=== PATIENT | male | born 1965 | race Caucasian/White ===

== ENCOUNTER → 2019-01-16 14:12 | Outpatient (CLI) | payer OTHER, SELFPAY ==
[2019-01-16 16:01] LABS: Absolute Neutrophil Count 2.5 X10^3/uL (2.0-7.7); Basophil# 0.03 X10^3/uL; Basophil% 0.6 % (0-1); Eosinophil# 0.06 X10^3/uL; Eosinophils% 1.2 % (0-5); Hematocrit 45.2 % (40-54); Hemoglobin 14.9 g/dL (13.0-16.5); Lymphocyte % 40.6 % (19-41); Mean Corpuscular Hgb 28.5 pg (27.0-32.0); Mean Corpuscular Volume 86.4 fL (80-94); Mean Platelet Vol. 9.9 fl (6.2-12.0); Monocyte# 0.44 X10^3/uL; Monocyte% 8.5 % (0-10); NRBC Flagged by Analyzer 0 % (0-5); Neutrophil # 2.53 X10^3/uL (2.7-7.7); Neutrophil % 48.9 % (47-70); Platelet Count 239 K/mm3 (150-450); RBC Distribution Width CV 13.4 % (11.6-14.6); RBC Distribution Width SD 42.3 fl (35.1-43.9); Red Blood Count 5.23 M/mm3 (4.6-6.2); White Blood Count 5.2 K/mm3 (4.4-11.0)
[2019-01-16 16:20] LABS: ALB/GLOB Ratio 0.8 RATIO (0.9-2.4); AST(SGOT) 56 U/L (15-37); Alanine Aminotransfer ALT/SGPT 117 U/L (16-61); Albumin, Serum 3.7 g/dL (3.2-5.0); Alkaline Phosphatase 95 U/L (45-117); Anion Gap 8 (5-15); BUN 19 mg/dL (7-18); BUN/Creat Ratio 17.9 RATIO (10-20); Calcium,Total 9.2 mg/dL (8.5-10.1); Chloride 104 mmol/L (98-107); Creatinine, Serum 1.06 mg/dL (0.70-1.30); EST Glomerular Filtration Rate 78 mL/min (>60); Est Glom Filt Rate - Afr Amer 94 mL/min (>60); Globulin 4.7 g/dL (2.2-4.2); Glucose 89 mg/dL (74-106); Potassium 4.1 mmol/L (3.5-5.1); Protein, Total 8.4 g/dL (6.4-8.2); Sodium Level 138 mmol/L (136-145); Thyroid Stim Hormone (TSH) 1.93 uIU/mL (0.358-3.74)
== END ==
PROVIDERS: Family Provider Internal Medicine; PCP Internal Medicine; Visit Provider Family Medicine Geriatric Medicine
DX: R53.83 Other fatigue (principal)
CPT/HCPCS: 36415; 80053; 84443; 85025

== ENCOUNTER → 2019-02-12 15:53 | Outpatient (CLI) | payer OTHER, SELFPAY ==
--- NOTE | 2019-02-12 13:00 | COLBX_PTH ---
PATIENT: AYE JONAS LOC: [facility] U#:[id number] AGE/SX: 59/M ROOM: RE02/12/[address]: Dr. Gautam Zayas MD : 1965 BED: DIS: SPEC #: [id number] RECD: 02/12/19 15:29 STATUS: LAVERN KENDRICK #: [id number] ESME: 02/12/19 13:[address]: Gautam Zayas DEPT: SURGICAL PATHOLOGY RECD BY: Demetrius Kerns ENTERED: 02/13/19 09:57 SP TYPE: COLON BX OTHR DR: Dr. Vaishali Monahan MD [facility] Tissues: SPLENIC FLEXURE Procedures: Surgery Specimen Level IV HEADER OPERATION: Colonoscopy with biopsies PRE-OP DIAGNOSIS: Screening colon / polyp TISSUE SUBMITTED: Polyp splenic flexure MICROSCOPIC DIAGNOSIS Splenic flexure polyp, biopsy: Hyperplastic polyp. SJ:pb 02/14/19 MICROSCOPIC DESCRIPTION Slides are reviewed. GROSS DESCRIPTION Received in fixative is one container labeled with the patient's name and designated splenic flexure. The specimen consists of two irregular fragments of light gage soft tissue that in aggregate measure 0.4 x 0.3 x 0.1 cm. The specimen is totally submitted in one cassette. / SJ:pb 02/13/19 TC:1 CPT: 23936
== END ==
PROVIDERS: Family Provider Internal Medicine; PCP Internal Medicine; Referring Provider Internal Medicine Gastroenterology; Visit Provider Internal Medicine Gastroenterology
DX: K63.5 Polyp of colon (principal)
CPT/HCPCS: 88305

== ENCOUNTER → 2019-02-28 14:04 | Outpatient (CLI) | payer OTHER, SELFPAY ==
[2019-02-28 17:40] LABS: ALB/GLOB Ratio 0.8 RATIO (0.9-2.4); AST(SGOT) 60 U/L (15-37); Alanine Aminotransfer ALT/SGPT 120 U/L (16-61); Albumin, Serum 3.7 g/dL (3.2-5.0); Alkaline Phosphatase 87 U/L (45-117); Anion Gap 6 (5-15); BUN 17 mg/dL (7-18); BUN/Creat Ratio 15.7 RATIO (10-20); Calcium,Total 9.1 mg/dL (8.5-10.1); Chloride 102 mmol/L (98-107); Creatinine, Serum 1.08 mg/dL (0.70-1.30); EST Glomerular Filtration Rate 76 mL/min (>60); Est Glom Filt Rate - Afr Amer 92 mL/min (>60); Globulin 4.6 g/dL (2.2-4.2); Glucose 99 mg/dL (74-106); Potassium 4.3 mmol/L (3.5-5.1); Protein, Total 8.3 g/dL (6.4-8.2); Sodium Level 136 mmol/L (136-145)
== END ==
PROVIDERS: Visit Provider Family Medicine Geriatric Medicine
DX: I10 Essential (primary) hypertension (principal)
CPT/HCPCS: 36415; 80053

== ENCOUNTER 2022-10-01 10:01 | Emergency (ER) | payer OTHER, SELFPAY ==
[2022-10-01 10:02] VITALS: BP 145/79; PULSE 97; RESP 18; TEMP 37.4; O2SAT 99; BMI 43.0
--- NOTE | 2022-10-01 10:05 | EDS_ITS ---
HPI History of Present Illness Chief Complaint: Fever [facility] Medical History (Updated 10/01/22 @ 10:16 by Aleyda Esparza) Hypertension Home Medications lisinopril 5 mg tablet 5 mg PO DAILY 10/01/22 [History Last Taken Unknown] nitrofurantoin macrocrystal 100 mg capsule 100 mg PO BID 7 days #14 caps 10/01/22 [Rx Last Taken Unknown] Allergy/AdvReac Type Severity Reaction Status Date / Time No Known Allergies Allergy Verified 10/01/22 10:03 Social History Smoking Status: Current every day smoker tobacco type: smokeless tobacco EXAM Physical Exam Const Vital Signs: 10/01/22 10:02 10/01/22 10:39 10/01/22 10:20 Temperature 99.3 F H 102.2 F H Temperature Source Oral Oral Pulse Rate 97 79 Respiratory Rate 18 14 Blood Pressure 145/79 H 128/85 H Blood Pressure Mean 101 99 Pulse Ox 99 94 Oxygen Delivery Method Room Air Room Air 10/01/22 12:29 10/01/22 13:15 10/01/22 14:00 Temperature Temperature Source Pulse Rate 84 Respiratory Rate Blood Pressure 101/60 111/61 104/64 Blood Pressure Mean 73 75 74 Pulse Ox 95 Oxygen Delivery Method Room Air MDM MDM MDM Narrative Medical decision making narrative: HISTORY OF PRESENT ILLNESS: 57-year-old male here with fever. Patient states he had prostate biopsy yesterday. States biopsy was done yesterday. Per the patient's there were 12 biopsies taken. He states since then he has had hematuria and feeling feverish with chills. Denies any nausea vomiting, headache, chest pain, shortness of breath, cough, abdominal pain. Denies any testicular tenderness. Notes pain at biopsy site otherwise no other symptoms. REVIEW OF SYSTEMS: Pertinent positives:fever, chills, hematuria Pertinent negatives: Cough, headache, abdominal pain, nausea vomiting PHYSICAL EXAM: Nursing triage notes reviewed, Vital signs reviewed Constitutional: please see mdm HENT: MMM Eyes: Pupils equal round and reactive to light, Extraocular muscles intact Neck: No stridor, no JVD, full neck ROM Lungs: Clear to auscultation, No wheezing or rales. No increased work of breathing, no conversational dyspnea, no accessory muscle use, no nasal flaring. No respiratory distress noted Heart: Regular rate and rhythm, No murmurs, No rubs and No gallops, 2+ distal pulses (radial, femoral, posterior tibial) in all extremities Abdomen: Soft, there is no tenderness, rigidity, rebound or guarding, no obvious peritoneal signs, no palpable pulsatile abdominal masses, no auscultated abdominal bruit : No CVAT, bladder urethral meatus, no testicular tenderness, Extremities: No edema Neuro: No focal neurological deficits, cranial nerves II through XII intact, 5/5 strength in all extremities. Intact sensation to light touch in all extremities, 2+ reflexes bilateral patella tendons. Normal gait. No ataxia. Skin: No rash or lesions noted MEDICAL DECISION MAKING: Chief Complaint: fever External records reviewed: Prostate biopsy done via transrectal approach on 09/30/2022 at [address] Edwards Factors affecting care: History of elevated PSA, obesity, hypertension Social determinants of health: Former smoker History obtained from others: the patient's Consults: none ALL IMAGES HAVE BEEN PERSONALLY REVIEWED AND INTERPRETED BY MYSELF. MDM Narrative: I considered the following differential diagnosis: UTI, reactive fever status post biopsy, bacterial illness, viral illness I obtained a broad lab and imaging work-up to further elucidate the etiology of the patient's complaints. Specifically concerned about bacteremia versus viral infection versus UTI versus prostatitis. I obtained a lactate to rule out signs of systemic inflammation. Urine urine culture and a CT scan to further evaluate patient's symptoms. CT scan shows evidence of bladder wall thickening. No obvious intra-abdominal abscesses. Labs consistent with elevated lactate concerning for endorgan hypoperfusion. There is no leukocytosis suggestive of inflammation. No anion gap to suggest endorgan hypoperfusion. UA consistent with infection likely secondary to recent prostate biopsy. Given Zosyn blood cultures and urine cultures were sent prior to antibiotics. On reevaluation the patient's lactate resolved. He felt normal shared decision make discussion was undertaken. I offered the patient admission given recent procedure, fever and initial elevated lactate. Patient refused admission at this time stating like to go home and oral antibiotics and monitor symptoms from home. I prescribed nitrofurantoin. I encouraged patient to follow-up with his online medical record and/or primary care physician for culture results. We will also call the patient if his culture results are positive and nitrofurantoin does not adequately cover the bacteria that grows. He agreed to return if symptoms change or worsen. Agreed to follow with his urologist and primary care physician the next available appointment. Total critical care time today provided was at least 0 minutes. This excludes separately billable procedures. There was a high probability of clinically significant/life threatening deterioration in the patient's condition which required my urgent intervention. Shared decision making: I will have a discussion with the patient and or visitors regarding risk/benefits of further testing or admission. They will be made aware of of the risk/benefits inherent in this decision they will be given the opportunity to voice understanding. Lab Data Attestation: I reviewed the patient's lab results. Lab results narrative: Urinalysis shows evidence of UTI CBC without leukocytosis, severe anemia, no thrombocytopenia. BMP with baseline CKD, negative anion gap LFTs show no evidence of hepatobiliary pathology. Labs: Laboratory Results - last 24 hr 10/01/22 10/01/22 10/01/22 10:28 10:28 10:28 WBC 6.3 RBC 5.22 Hgb 15.1 Hct 45.3 MCV 86.8 MCH 28.9 MCHC 33.3 RDW Std Deviation 44.0 H RDW Coeff of Deon 13.8 Plt Count 225 MPV 9.3 Immature Gran % (Auto) 0.500 Neut % (Auto) 90.4 H Lymph % (Auto) 8.3 L [place] % (Auto) 0.2 Eos % (Auto) 0.3 Baso % (Auto) 0.3 Absolute Neuts (auto) 5.7 Absolute Lymphs (auto) 0.52 L Nucleated RBC % 0 Differential Comment SCANNED Sodium 135 L Potassium 4.4 Chloride 102 Carbon Dioxide 28.0 Anion Gap 5 BUN 18 Creatinine 1.46 H Estim Creat Clear Calc 52.19 Est GFR (MDRD) Af Amer 64 Est GFR (MDRD) Non-Af 53 L BUN/Creatinine Ratio 12.3 Glucose 98 Lactic Acid 2.5 H* Calcium 9.6 Total Bilirubin 0.80 AST 18 ALT 34 Alkaline Phosphatase 74 Total Protein 8.2 Albumin 3.8 Globulin 4.4 H Albumin/Globulin Ratio 0.9 Lipase 67 Urine Color Urine Clarity Urine pH Ur Specific [place] Urine Protein Urine Glucose (UA) Urine Ketones Urine Occult Blood Urine Nitrite Urine Bilirubin Urine Urobilinogen Ur Leukocyte Esterase Urine RBC Urine WBC Ur Squamous Epith Cells Urine Bacteria Urine Mucus 10/01/22 10/01/22 10:28 14:05 WBC RBC Hgb Hct MCV MCH MCHC RDW Std Deviation RDW Coeff of Deon Plt Count MPV Immature Gran % (Auto) Neut % (Auto) Lymph % (Auto) [place] % (Auto) Eos % (Auto) Baso % (Auto) Absolute Neuts (auto) Absolute Lymphs (auto) Nucleated RBC % Differential Comment Sodium Potassium Chloride Carbon Dioxide Anion Gap BUN Creatinine Estim Creat Clear Calc Est GFR (MDRD) Af Amer Est GFR (MDRD) Non-Af BUN/Creatinine Ratio Glucose Lactic Acid 1.7 Calcium Total Bilirubin AST ALT Alkaline Phosphatase Total Protein Albumin Globulin Albumin/Globulin Ratio Lipase Urine Color Red Urine Clarity Cloudy Urine pH 5.0 Ur Specific [place] 1.015 Urine Protein 100 H Urine Glucose (UA) Normal Urine Ketones 5 H Urine Occult Blood 250 H Urine Nitrite Positive H Urine Bilirubin Negative Urine Urobilinogen Normal Ur Leukocyte Esterase 100 H Urine RBC 25-50 SEEN Urine WBC 10-25 SEEN Ur Squamous Epith Cells 0 SEEN Urine Bacteria 1+ Urine Mucus 0 SEEN Radiography Diagnostic Testing: Clinical Impression(s) from Imaging Studies Abdomen/Pelvis CT 10/01/22 10:17 IMPRESSION: Hepatic cysts. Small bilateral renal cysts. 4.2 cm x 4.3 cm heterogeneous mass in the inferior pole of the left kidney. A neoplastic process should BE ruled out. The degree of enlargement of the prostate with heterogeneous appearance in indentation of the bladder base. Diffuse bladder wall thickening. Electronically Signed: Mata Souza MD at 12:01 EDT Reading Location ID and State: [address] [place] [address] , Service support , Discharge Plan Triage Chief Complaint: Fever ED Provider: Daryl Pickett Dx/Rx/DC Orders Instructions: ED Bladder Infection, Male (Adult) Prescriptions: New nitrofurantoin macrocrystal 100 mg capsule 100 mg PO BID 7 Days Qty: 14 0RF Rx Instructions: must administer with a meal/food No Action lisinopril 5 mg tablet 5 mg PO DAILY Label Comments: take 1 tablet by mouth once daily Stand Alone Forms: ED Work / School Excuse Primary Care Provider: Billy Thurston Referrals: NOT,DEFINED [Non-Staff] - Activity Restrictions/Additional Instructions: Thank you for trusting us with your care today! Please take Tylenol (2 pills, 650 mg), ibuprofen (2 pills, 400 mg) every 6 hours as needed for pain and fever control. Please take oral antibiotics. Please return to the emergency department if your symptoms change or worsen. Specifically if you develop worsening fever, nausea vomiting, if you develop worsening fevers or chills. Please follow with your primary care physician for further outpatient evaluation and management. Disposition Disposition: Home, Self Care
--- NOTE | 2022-10-01 10:17 | CT_ITS ---
STUDY: CT ABDOMEN AND PELVIS WITH CONTRAST REASON FOR EXAM: Male, 57 years old. Fever status post transrectal prostate biopsy RADIATION DOSAGE (If Supplied By Facility): CTDIvol = ( 17.015 ) mGy, DLP = ( 1488.18 ) mGycm TECHNIQUE: Transaxial images were obtained from the dome of the diaphragm to the symphysis pubis without oral contrast. IV-100 ML ISOVUE 370 was administered. Sagittal and coronal images were reconstructed. Individualized dose optimization techniques were used for this CT. COMPARISON: None. FINDINGS: Small calcified granuloma in the anterior aspect of the lingular segment of left upper lobe. The visualized portions of the heart are within normal limits. Scattered hepatic cysts. The largest cyst measures 5.2 cm x 5 cm. Fatty infiltration of the liver. Normal gallbladder and extrahepatic biliary system. Normal spleen. Normal pancreas. Normal bilateral adrenal glands. There is a 1.4 cm x 1.9 cm cyst in the upper outer aspect of the right kidney. There is a 4.2 cm x 4.3 cm heterogeneous mass in the inferior pole of the left kidney. A neoplastic process should be ruled out. There is also evidence of a 1.8 cm cyst in the lower pole of the left kidney. Normal left kidney. Normal visualized stomach. Normal small intestine. Normal colon. The appendix is visualized and appears normal. Normal abdominal aorta. Normal inferior vena cava. There is borderline retroperitoneal lymphadenopathy with enlarged nodes no greater than 10mm in the short axis diameter. Diffuse bladder wall thickening. Markedly enlarged heterogeneous appearance of the prostate measuring 5.4 cm x 7.5 cm. This causes indentation at the bladder base. There is evidence of presacral soft tissue prominence. Small benign-appearing bilateral inguinal lymph nodes. There are diffuse degenerative changes of the visualized lumbar spine. CT/Abdomen/Pelvis W IV Cont ONLY IMPRESSION: Hepatic cysts. Small bilateral renal cysts. 4.2 cm x 4.3 cm heterogeneous mass in the inferior pole of the left kidney. A neoplastic process should BE ruled out. The degree of enlargement of the prostate with heterogeneous appearance in indentation of the bladder base. Diffuse bladder wall thickening. Electronically Signed: Mata Souza MD at 12:01 EDT ,
[2022-10-01 10:20] VITALS: TEMP 39
[2022-10-01] MEDS: Acetaminophen 325 MG Tablet PO (10:27)
[2022-10-01] MEDS: 0.9% Normal Saline 1,000 ML 1000 ML IV (10:27)
[2022-10-01] MEDS: Ketorolac 15 MG/ML Vial IV (10:27)
[2022-10-01 10:39] VITALS: BP 128/85; PULSE 79; RESP 14; O2SAT 94
[2022-10-01 10:39] LABS: Mucous, Urine 0 SEEN /hpf (<or=2+); Squamous Epithelial Cells - UA 0 SEEN /hpf (0-5)
[2022-10-01 10:40] LABS: Color, Urine Red (Yellow); Glucose, Dipstick Normal (Normal); Ketone-Dipstick 5 mg/dl (Negative); Leukocyte Esterase-Dipstick 100 /ul (Negative); Nitrite-Dipstick Positive (Negative); Occult Blood-Urine 250 /ul (Negative); Protein-Dipstick 100 mg/dl (Negative); Specific Gravity, Urine 1.015 (1.002-1.030); Urine Bilirubin Dipstick Negative (Negative); Urine Clarity Cloudy (Clear); Urine Urobilinogen Normal (Normal)
[2022-10-01 10:41] LABS: Absolute Lymphocyte Count 0.52 X10^3/uL (0.83-4.51); Absolute Neutrophil Count 5.7 X10^3/uL (2.0-7.7); Basophil# 0.02 X10^3/uL; Basophil% 0.3 % (0-1); Eosinophil# 0.02 X10^3/uL; Eosinophils% 0.3 % (0-5); Hematocrit 45.3 % (40-54); Hemoglobin 15.1 g/dL (13.0-16.5); Lymphocyte # 0.52 X10^3/ul (0.83-4.51); Lymphocyte % 8.3 % (19-41); Mean Corp Hgb Conc 33.3 g/dL (32-36); Mean Corpuscular Hgb 28.9 pg (27.0-32.0); Mean Corpuscular Volume 86.8 fL (80-94); Mean Platelet Vol. 9.3 fl (6.2-12.0); Monocyte# 0.01 X10^3/uL; Monocyte% 0.2 % (0-10); NRBC Flagged by Analyzer 0 % (0-5); Neutrophil # 5.65 X10^3/uL (2.7-7.7); Neutrophil % 90.4 % (47-70); POSITIVE DIFFERENTIAL YES; Platelet Count 225 K/mm3 (150-450); RBC Distribution Width CV 13.8 % (11.6-14.6); Red Blood Count 5.22 M/mm3 (4.6-6.2); White Blood Count 6.3 K/mm3 (4.4-11.0)
[2022-10-01 10:44] LABS: Differential Indicated SCAN CRITERIA MET
[2022-10-01 10:49] LABS: Bacteria 1+ /hpf (None Seen); Red Blood Cells-Urine 25-50 SEEN /hpf (0-5); White Blood Cells 10-25 SEEN /hpf (0-5)
[2022-10-01 10:58] LABS: ALB/GLOB Ratio 0.9 RATIO (0.9-2.4); AST(SGOT) 18 U/L (15-37); Alanine Aminotransfer ALT/SGPT 34 U/L (16-61); Albumin, Serum 3.8 g/dL (3.2-5.0); Alkaline Phosphatase 74 U/L (45-117); Anion Gap 5 (5-15); BUN 18 mg/dL (7-18); BUN/Creat Ratio 12.3 RATIO (10-20); Calcium,Total 9.6 mg/dL (8.5-10.1); Chloride 102 mmol/L (98-107); Creatinine, Serum 1.46 mg/dL (0.70-1.30); EST Glomerular Filtration Rate 53 mL/min (>60); Est Glom Filt Rate - Afr Amer 64 mL/min (>60); Estimated Creatinine Clearance 52.19 ml/min; Globulin 4.4 g/dL (2.2-4.2); Glucose 98 mg/dL (74-106); Lipase 67 U/L (13-75); Potassium 4.4 mmol/L (3.5-5.1); Protein, Total 8.2 g/dL (6.4-8.2); Sodium Level 135 mmol/L (136-145)
[2022-10-01 11:13] LABS: Lactic Acid 2.5 mmol/L (0.4-1.9)
[2022-10-01 11:14] LABS: Differential Comment SCANNED
--- NOTE | 2022-10-01 11:16 | ED.RN ---
PT LACTIC 23.5. DR ONTIVEROS
[2022-10-01] MEDS: 0.9% Normal Saline 1,000 ML 999 ML IV ×2 (11:54→13:13)
[2022-10-01 12:29] VITALS: BP 101/60; PULSE 84; O2SAT 95
[2022-10-01 13:15] VITALS: BP 111/61
[2022-10-01 14:00] VITALS: BP 104/64
[2022-10-01 14:37] LABS: Reflex Lactate? Y
[2022-10-01 14:41] LABS: Lactic Acid 1.7 mmol/L (0.4-1.9)
--- NOTE | 2022-10-02 01:24 | ED.RN ---
LAB CALLED WITH POSITIVE BLOOD CULTURE RESULTS. GRAM NEGATIVE IN RODS IN BOTH BOTTLES. DR. MUNIZ REVIEWED CHART AND PATIENT SHOULD BE CALLED IN THE MORNING TO CHECK TO SEE HOW HE IS DOING. PRIOR TO MAKING PHONE CALL PATIENT PRESENTS BACK TO THE ER FEELING WORSE. FULL WORK TO BE COMPLETED AT THIS TIME.
== END 2022-10-01 15:41 | disposition home or self-care (01) ==
PROVIDERS: Emergency Provider Emergency Medicine; PCP Family Medicine; Visit Provider Emergency Medicine
DX: R50.9 Fever, unspecified (principal); I10 Essential (primary) hypertension; Z79.899 Other long term (current) drug therapy; F17.200 Nicotine dependence, unspecified, uncomplicated; N30.90 Cystitis, unspecified without hematuria
CPT/HCPCS: 74177; 80053; 81001; 83605; 83690; 85025; 87040; 87077; 87086; 87088; 87186; 87428; 96361; 96365; 96366; 96375; 99282; J7030; Q9967; A4216

== ENCOUNTER 2022-10-02 00:56 | Inpatient (IN) | payer OTHER, SELFPAY ==
[2022-10-02] VITALS (13 sets, daily range): BP systolic 93–133; BP diastolic 41–70; PULSE 73–95; RESP 16–26; TEMP 36.7–39.6; O2SAT 96–99; BMI 43.6; BMI 43.0
[2022-10-02] MEDS: Acetaminophen 500 MG Tablet 1000 MG PO (01:19)
[2022-10-02 01:25] LABS: Absolute Lymphocyte Count 0.66 X10^3/uL (0.83-4.51); Absolute Neutrophil Count 1.2 X10^3/uL (2.0-7.7); Basophil# 0.01 X10^3/uL; Basophil% 0.5 % (0-1); Hematocrit 39.6 % (40-54); Hemoglobin 13.4 g/dL (13.0-16.5); Lymphocyte # 0.66 X10^3/ul (0.83-4.51); Lymphocyte % 35.1 % (19-41); Mean Corp Hgb Conc 33.8 g/dL (32-36); Mean Corpuscular Hgb 28.9 pg (27.0-32.0); Mean Corpuscular Volume 85.3 fL (80-94); Mean Platelet Vol. 9.6 fl (6.2-12.0); Monocyte# 0.02 X10^3/uL; Monocyte% 1.1 % (0-10); NRBC Flagged by Analyzer 0 % (0-5); Neutrophil # 1.19 X10^3/uL (2.7-7.7); Neutrophil % 63.3 % (47-70); POSITIVE MORPHOLOGY YES; Platelet Count 177 K/mm3 (150-450); RBC Distribution Width SD 43.4 fl (35.1-43.9); Red Blood Count 4.64 M/mm3 (4.6-6.2); White Blood Count 1.9 K/mm3 (4.4-11.0)
[2022-10-02 01:29] LABS: Differential Indicated SCAN CRITERIA MET
--- NOTE | 2022-10-02 01:35 | RAD_ITS ---
INDICATION: fever EXAMINATION/TECHNIQUE: X-RAY - XR Chest 1 View COMPARISON: None. FINDINGS: LINES/DEVICES: None. LUNGS: No consolidation or evidence of an effusion. No evidence of edema or a pneumothorax. MEDIASTINUM AND CARDIOVASCULAR STRUCTURES: Cardiac silhouette is normal in size and contour. Mediastinum is unremarkable. BONES AND SOFT TISSUES: No acute abnormality. RAD/Chest 1 View (Portable) IMPRESSION: No evidence of cardiopulmonary disease. Electronically Signed: Billy Hogan DO at 1:54 EDT ,
[2022-10-02 01:39] LABS: Anion Gap 10 (5-15); BUN 24 mg/dL (7-18); BUN/Creat Ratio 13.2 RATIO (10-20); Calcium,Total 8.8 mg/dL (8.5-10.1); Chloride 106 mmol/L (98-107); Creatinine, Serum 1.82 mg/dL (0.70-1.30); EST Glomerular Filtration Rate 41 mL/min (>60); Est Glom Filt Rate - Afr Amer 50 mL/min (>60); Estimated Creatinine Clearance 41.87 ml/min; Glucose 95 mg/dL (74-106); Potassium 3.9 mmol/L (3.5-5.1); Sodium Level 136 mmol/L (136-145)
[2022-10-02] MEDS: 0.9% Normal Saline 1,000 ML 999 ML IV ×4 (01:42→03:36)
[2022-10-02 01:45] LABS: Lactic Acid 3.6 mmol/L (0.4-1.9)
[2022-10-02 01:49] LABS: Procalcitonin 36.66 ng/mL (0.00-0.09)
--- NOTE | 2022-10-02 02:34 | HP.PCM.HOS_ITS ---
[facility] - General General Date of Service: 10/02/22 Chief Complaint: rigors HPI Narrative AYE JONAS, is a 57 M who presents with rigors and malaise. On September 30, mich hilton underwent a prostate biopsy for elevated PSA. That was performed in [place] with [facility]. On the second, patient started feeling unwell but was able to go to work but progressively got worse and presented to the emergency room. Patient was diagnosed with a urinary tract infection and sent home with Macrobid. Despite that, patient continued to get worse and presented again to the emergency room. Blood pressure was low at 93/41 with a mean arterial pressure of 58. Patient received 30 cc/kg of IV fluids and since that is being administered his blood pressure has steadily improved. Patient has not been tachycardic during this time. When the patient was seen on the second, blood cultures were drawn and are already coming back with gram-negative rods in both sets. Urine culture still pending. Patient, given the severity of his illness, received piperacillin/tazobactam and vancomycin. Additionally, patient had tested positive for influenza B. Patient denies any upper respiratory symptoms. Patient did have hematuria which according to his was rather gretchen, after the biopsy but they were informed by the urologist that this was to be expected. [facility], [facility] Medical History (Updated 10/02/22 @ 02:[address] Reed Hidalgo DO) Hypertension Obesity Home Medications lisinopril 5 mg tablet 5 mg PO DAILY 10/01/22 [History Last Taken Unknown] nitrofurantoin macrocrystal 100 mg capsule 100 mg PO BID 7 days #14 caps 10/01/22 [Rx Last Taken Unknown] Allergy/AdvReac Type Severity Reaction Status Date / Time No Known Allergies Allergy Verified 10/02/22 01:12 Family History (Updated 10/02/22 @ 02:[address] Reed Hidalgo DO) Father Heart valve replaced Social History (Updated 10/02/22 @ 02:[address] Reed Hidalgo DO) Smoking Status: Current every day smoker tobacco type: smokeless tobacco alcohol intake: current alcohol intake frequency: holidays/special occasions only ROS ROS Narrative Diaphoresis. Denies shortness of breath, rash, chest pain, abdominal pain, diarrhea, dysuria. All review of systems were negative except as mentioned above in the history of present illness and the other review of systems. Vital Signs Vital Signs Vital Signs: 10/02/22 00:58 10/02/22 01:26 10/02/22 02:07 Temperature 39.6 C H 37.3 C Temperature Source Oral Oral Pulse Rate 95 90 84 Respiratory Rate 26 H 16 24 H Blood Pressure 93/41 L 96/49 L 117/55 L Blood Pressure Mean 58 64 75 Pulse Ox 96 98 96 Oxygen Delivery Method Room Air Room Air Room Air Weight Weight: 126.3 kg Body Mass Index (BMI) 43.6 Physical Exam Const alert Constitutional Narrative: Profoundly diaphoretic. Nontoxic. Follows commands. General Appearance: cooperative HEENT normocephalic and head/scalp atraumatic Eyes conjunctivae normal Eyes Narrative: No icterus Neck no lymphadenopathy Neck Narrative: No thyromegaly Resp normal respiratory effort, no retractions, no use of accessory muscles and clear to auscultation bilaterally Cardio regular rate, regular rhythm, S1 normal heart sound, S2 normal heart sound, no murmurs, no rub, no gallops, no clicks and no JVD GI normal to inspection, nondistended, normoactive bowel sounds, soft to palpation, non-tender, non-distended and hepatosplenomegaly Extremity normal to inspection, full ROM and no clubbing, cyanosis or edema Neuro oriented x3 Sensorium / Orientation: awake and alert Psych affect normal Results Lab / Micro Data Attestation: I reviewed the patient's lab results. Result Diagrams: 10/02/22 01:15 10/02/22 01:15 Labs: Laboratory Results - last 24 hr 10/02/22 01:15: Sodium 136, Potassium 3.9, Chloride 106, Carbon Dioxide 20.0 L, Anion Gap 10, BUN 24 H, Creatinine 1.82 H, Estim Creat Clear Calc 41.87, Est GFR (MDRD) Af Amer 50 L, Est GFR (MDRD) Non-Af 41 L, BUN/Creatinine Ratio 13.2, Glucose 95, Calcium 8.8 10/02/22 01:15: Procalcitonin 36.66 H 10/02/22 01:15: WBC 1.9 L, RBC 4.64, Hgb 13.4, Hct 39.6 L, MCV 85.3, MCH 28.9, MCHC 33.8, RDW Std Deviation 43.4, RDW Coeff of Deon 14.0, Plt Count 177, MPV 9.6, Immature Gran % (Auto) 0.000, Neut % (Auto) 63.3, Lymph % (Auto) 35.1, [place] % (Auto) 1.1, Eos % (Auto) 0.0, Baso % (Auto) 0.5, Absolute Neuts (auto) 1.2 L, Absolute Lymphs (auto) 0.66 L, Nucleated RBC % 0 10/02/22 01:15: Lactic Acid 3.6 H* Radiology Impression Chest X-Ray 10/02/22 01:35 IMPRESSION: No evidence of cardiopulmonary disease. Electronically Signed: Billy Hogan DO at 1:54 EDT , Assessment & Plan Assessment/Plan (1) Sepsis: PLAN: Patient was hypotensive upon arrival but has steadily improved since his presentation. Patient has not been tachycardic however. qSOFA score of 2 with a respiratory rate greater than 22 and a systolic blood pressure less than 100. And a SIRS score of 4. Additionally patient had a procalcitonin elevated at 36.6, lactic acid elevation of 3.6 In the emergency room, patient received 30 cc/kg of IV fluids and his pressure has steadily improved even before that was completed. Will let that finish This is secondary to the bacteremia which is likely related with the recent prostate biopsy that he had. For antibiotics, will continue with Pipracil and/tazobactam until the cultures are finalized. Patient did receive vancomycin in the emergency room but with the positive blood cultures I do not feel that that would be necessary to continue the vancomycin at this point time as we have clear etiology of gram- negative bacteremia. (2) Bacteremia: PLAN: Gram-negative Suspect related with the patient's recent prostate biopsy Follow-up cultures and adjust antibiotics accordingly. Continue with Pipracil and/tazobactam (3) UTI (urinary tract infection): PLAN: Noted on his prior urinalysis. Patient was discharged with Macrobid when he presented on the second. (4) Neutropenia: PLAN: Secondary to sepsis. Would anticipate improvement as he continues to clinically improve. Continue to monitor (5) Lactic acidosis: PLAN: Secondary to sepsis Monitor. (6) Hematuria: PLAN: Secondary to his prostate biopsies Hemoglobin is currently 13.4 though that may actually be hemoconcentrated. Monitor H&H. Transfuse if hemoglobin less than 7. If does continue to be gretchen hematuria, patient may need CBI states that his urologist were previously aware and advised him that this was a normal occurrence after a prostate biopsy that could last up to 2 weeks. (7) Influenza B: PLAN: I do not suspect that this is having much of an impact on his overall picture But since he did test positive for it we will start him on oseltamivir PLAN: Plan Chronic conditions * Obesity with BMI of 43.6 kg/m?. * Hypertension: Currently holding his lisinopril. Normally takes his lisinopril at night but he did not take it on the night of the second. VTE prophylaxis: SCDs. Holding off on chemical prophylaxis patient is having hematuria related with his recent prostate biopsies. Case discussed with the patient's at bedside. Sepsis Attestation Sepsis Alert: Yes Sepsis Attestation: Agree w/Sepsis Date exam was performed: 10/02/22 Possible Source of Sepsis: Genitourinary Sepsis Organ Dysfunction Criteria Present: SBP < 90 mmHg or MAP < 65 mmHg and Lactic Acid > 2 mmol/L Charges/Coding Visit Charges Inpatient E&M: 10753 Init Hosp L3
--- NOTE | 2022-10-02 02:40 | EDS_ITS ---
HPI History of Present Illness Chief Complaint: Shortness of Breath Informant: patient and spouse/S.O. Narrative Narrative: Patient is a 57-year-old male with past medical history of hypertension who underwent a prostate biopsy at an outpatient facility on . He then developed a fever on Tuesday and came into the ER. At that work-up his initial lactic was elevated and he was started on antibiotics. He had a CT scan done to look for potential bleed perforation or abscess which was negative. They discussed admission but patient wanted to go home as his vitals are stable and his lactic had improved. He states that he has been at home for approximately 8 to 10 hours and his fever elevated up to 103 and he felt like his symptoms were worsening and therefore he comes back in for evaluation. [facility] Medical History (Updated 10/02/22 @ 02:[address] Reed Hidalgo DO) Hypertension Obesity Home Medications lisinopril 5 mg tablet 5 mg PO DAILY 10/01/22 [History Last Taken Unknown] nitrofurantoin macrocrystal 100 mg capsule 100 mg PO BID 7 days #14 caps 10/01/22 [Rx Last Taken Unknown] Allergy/AdvReac Type Severity Reaction Status Date / Time No Known Allergies Allergy Verified 10/02/22 01:12 Family History (Updated 10/02/22 @ 02:[address] Reed Hidalgo DO) Father Heart valve replaced Social History (Updated 10/02/22 @ 02:[address] Reed Hidalgo DO) Smoking Status: Current every day smoker tobacco type: smokeless tobacco alcohol intake: current alcohol intake frequency: holidays/special occasions on [facility] ED Constitutional Constitutional ED: Reports chills and fever(s) ENT ENT ED: Denies sore throat Cardiovascular Cardiovascular: Denies chest pain Respiratory/Chest Respiratory/Chest: Reports dyspnea; Denies cough Gastrointestinal Gastrointestinal: Denies abdominal pain, diarrhea, nausea or vomiting Genitourinary Genitourinary ED: Reports hematuria; Denies dysuria Musculoskeletal Musculoskeletal: Reports myalgias Integumentary Denies rash Neurologic Neurologic: Denies headache(s) Hematologic/Lymphatic Hematologic/Lymphatic: Denies easy bleeding or easy bruising EXAM Physical Exam Const Vital Signs: 10/02/22 00:58 10/02/22 01:26 10/02/22 02:07 Temperature 103.2 F H 99.1 F Temperature Source Oral Oral Pulse Rate 95 90 84 Respiratory Rate 26 H 16 24 H Blood Pressure 93/41 L 96/49 L 117/55 L Blood Pressure Mean 58 64 75 Pulse Ox 96 98 96 Oxygen Delivery Method Room Air Room Air Room Air Positive well nourished, well developed and obese General Appearance ED: well developed Nutritional Appearance: obese HEENT Reports moist mucous membranes Eyes PERRL and EOMs intact bilaterally General Eye ED: Negative for scleral icterus Neck supple Neck Narrative: No nuchal rigidity or meningeal signs Chest Wall palpation of chest normal Resp Resp Narrative: Breath sounds are slight diminished throughout with faint rhonchi in the bilateral bases and patient does have tachypnea present but no nasal flaring or retractions or accessory muscle use Cardio regular rate and regular rhythm Rate: other Other Details: Radial pulses are plus 2 out of 4 bilaterally are equal and symmetric GI normal to inspection, nondistended, normoactive bowel sounds, non-tender, non- distended and no masses GI Narrative: No voluntary guarding or rigidity no pulsatile mass Auscultation: normoactive bowel sounds Palpation: soft Back/Spine no CVA tenderness Extremity normal to inspection Neuro oriented x3 and CN's II-XII intact bilaterally Sensorium / Orientation: alert Psych mental status grossly normal Skin no rashes or lesions noted MDM MDM MDM Narrative Medical decision making narrative: Patient presented to the ER febrile 103 and hypotensive at 93/41. He states he did not take his blood pressure medications this evening. From his previous visit the imaging and laboratory studies were reviewed and patient's blood cultures did produce gram-negative rods indicating systemic infection. As he is febrile and hypotensive he does qualify for sepsis. He was started on 30 mL/kg fluid bolus which is approximately 4 L of normal saline. With this his blood pressure improved. Even though initial Gram stain showed gram-negative rods he was also still given vancomycin and Zosyn in the ER for broad-spectrum antibiotic coverage. A chest x-ray was added because of the rhonchi noted on exam but reveals no obvious infectious process. The patient's white blood cell count is now leukopenic dropping to 1.9 he is also now neutropenic at 1.2 and lactic acid has increased to 3.6. These values coupled with his abnormal vitals do qualify for sepsis most likely from the recent biopsy source. As patient will require IV antibiotics and persistent monitoring secondary to the infectious process medicine was consulted and they do agree except the patient at this time. As the patient has improved with antipyretics and IV fluids there is no need for admission to the ICU and he will be admitted to the medical floor History & Record Review Discussion w/independent historian: Patient and Significant other Lab Data Attestation: I reviewed the patient's lab results. Labs: Laboratory Results - last 24 hr 10/02/22 10/02/22 10/02/22 01:15 01:15 01:15 WBC 1.9 L RBC 4.64 Hgb 13.4 Hct 39.6 L MCV 85.3 MCH 28.9 MCHC 33.8 RDW Std Deviation 43.4 RDW Coeff of Deon 14.0 Plt Count 177 MPV 9.6 Immature Gran % (Auto) 0.000 Neut % (Auto) 63.3 Lymph % (Auto) 35.1 [place] % (Auto) 1.1 Eos % (Auto) 0.0 Baso % (Auto) 0.5 Absolute Neuts (auto) 1.2 L Absolute Lymphs (auto) 0.66 L Nucleated RBC % 0 Sodium 136 Potassium 3.9 Chloride 106 Carbon Dioxide 20.0 L Anion Gap 10 BUN 24 H Creatinine 1.82 H Estim Creat Clear Calc 41.87 Est GFR (MDRD) Af Amer 50 L Est GFR (MDRD) Non-Af 41 L BUN/Creatinine Ratio 13.2 Glucose 95 Lactic Acid Calcium 8.8 Procalcitonin 36.66 H 10/02/22 01:15 WBC RBC Hgb Hct MCV MCH MCHC RDW Std Deviation RDW Coeff of Deon Plt Count MPV Immature Gran % (Auto) Neut % (Auto) Lymph % (Auto) [place] % (Auto) Eos % (Auto) Baso % (Auto) Absolute Neuts (auto) Absolute Lymphs (auto) Nucleated RBC % Sodium Potassium Chloride Carbon Dioxide Anion Gap BUN Creatinine Estim Creat Clear Calc Est GFR (MDRD) Af Amer Est GFR (MDRD) Non-Af BUN/Creatinine Ratio Glucose Lactic Acid 3.6 H* Calcium Procalcitonin Radiography Diagnostic Testing: Clinical Impression(s) from Imaging Studies Chest X-Ray 10/02/22 01:35 IMPRESSION: No evidence of cardiopulmonary disease. Electronically Signed: Billy Hogan DO at 1:54 EDT , Chest x-ray as interpreted by the emergency medicine physician reveals no acute infiltrate pneumothorax or pleural effusion. Discharge Plan Dx/Rx/DC Orders Clinical Impression: Sepsis, Lactic acidosis, Neutropenia, Obesity, History of hypertension Disposition Disposition: Acute Care Hospital [facility]
--- NOTE | 2022-10-02 04:53 | US_ITS ---
PROCEDURES: TRANSRECTAL ULTRASOUND REASON FOR EXAM: Male, 57 years old. recent prostate biopsy TECHNIQUE: Transrectal and transabdominal evaluation of the prostate was performed with real-time and static navarrete-scale imaging. COMPARISON: CT 10/21/2022 FINDINGS: Prostate Volume: 119.27 cm3 Heterogeneous transitional zone with focal rounded hypoechoic appearance centrally measuring up to 3.5 cm without clear vascular flow. However, overall increased vascularity of the prostate gland. The seminal vesicles appear normal on transabdominal imaging without evidence of nodules or lesions. US/Prostate IMPRESSION: 1. Prostatomegaly with increased vascularity can be associated with prostatitis. 2. 3.5 cm hypoechoic lesion in the central transitional zone could represent a BPH nodule, however, in the setting of history of biopsy, small hematoma/blood product is also possible. 3. No focal fluid collection. Electronically Signed: Serge Monsalve (Brooks), at 16:02 EDT ,
[2022-10-02 05:25] LABS: Reflex Lactate? Y
[2022-10-02 05:29] LABS: Absolute Lymphocyte Count 0.61 X10^3/uL (0.83-4.51); Absolute Neutrophil Count 11.5 X10^3/uL (2.0-7.7); Basophil# 0.04 X10^3/uL; Basophil% 0.3 % (0-1); Eosinophil# 0.32 X10^3/uL; Eosinophils% 2.5 % (0-5); Hematocrit 38.4 % (40-54); Hemoglobin 12.8 g/dL (13.0-16.5); Lymphocyte # 0.61 X10^3/ul (0.83-4.51); Lymphocyte % 4.8 % (19-41); Mean Corp Hgb Conc 33.3 g/dL (32-36); Mean Corpuscular Hgb 28.8 pg (27.0-32.0); Mean Corpuscular Volume 86.5 fL (80-94); Mean Platelet Vol. 9.3 fl (6.2-12.0); Monocyte# 0.15 X10^3/uL; Monocyte% 1.2 % (0-10); NRBC Flagged by Analyzer 0 % (0-5); Neutrophil # 11.46 X10^3/uL (2.7-7.7); Neutrophil % 90.7 % (47-70); POSITIVE MORPHOLOGY YES; Platelet Count 164 K/mm3 (150-450); Red Blood Count 4.44 M/mm3 (4.6-6.2); White Blood Count 12.6 K/mm3 (4.4-11.0)
[2022-10-02 05:55] LABS: Differential Indicated SCAN CRITERIA MET
[2022-10-02 05:57] LABS: ALB/GLOB Ratio 0.9 RATIO (0.9-2.4); AST(SGOT) 45 U/L (15-37); Alanine Aminotransfer ALT/SGPT 50 U/L (16-61); Albumin, Serum 2.7 g/dL (3.2-5.0); Alkaline Phosphatase 61 U/L (45-117); Anion Gap 7 (5-15); BUN 23 mg/dL (7-18); BUN/Creat Ratio 13.9 RATIO (10-20); Calcium,Total 7.4 mg/dL (8.5-10.1); Chloride 113 mmol/L (98-107); Creatinine, Serum 1.65 mg/dL (0.70-1.30); EST Glomerular Filtration Rate 46 mL/min (>60); Est Glom Filt Rate - Afr Amer 56 mL/min (>60); Estimated Creatinine Clearance 46.18 ml/min; Globulin 3.1 g/dL (2.2-4.2); Glucose 107 mg/dL (74-106); Potassium 3.6 mmol/L (3.5-5.1); Protein, Total 5.8 g/dL (6.4-8.2); Sodium Level 140 mmol/L (136-145)
[2022-10-02 05:59] LABS: Differential Comment SCANNED
--- NOTE | 2022-10-02 07:38 | PCM.PN.HOSP ---
Reason for Visit Reason for Visit: Diagnoses Sepsis, unspecified organism (10/02/22) Neutropenia, unspecified (10/02/22) Acidosis, unspecified (10/02/22) Influenza due to other identified influenza virus with other respiratory manifestations (10/02/22) Urinary tract infection, site not specified (10/02/22) Hematuria, unspecified (10/02/22) Bacteremia (10/02/22) Subjective Subjective Patient is a 57-year-old gentleman with recent prostate biopsy for elevated PSA. Performed at [facility] in [place] who presented to the emergency department with rigors and low blood pressure. An assessment of sepsis secondary to prostatitis made admitted to a monitored bed for further management Objective Data Objective Data Vital Signs: Vital Signs Temp Pulse Resp BP Pulse Ox O2 Del Method 98.2 F 77 16 110/60 97 Room Air 10/02/22 05:11 10/02/22 05:11 10/02/22 05:11 10/02/22 05:11 10/02/22 05:11 10/02/22 05:11 Oxygen Delivery Method Room Air Weight: 124.738 kg Body Mass Index (BMI) 43.0 Intake & Output: Intake and Output for Last 24 Hours 09/30/22 10/01/22 10/02/22 23:59 23:59 23:59 Intake Total 4422.5 / 4422.5 Balance 4422.5 / 4422.5 Lab / Micro Data Result Diagrams: 10/02/22 05:21 10/02/22 05:21 Labs: Laboratory Results - last 24 hr 10/02/22 01:15: Sodium 136, Potassium 3.9, Chloride 106, Carbon Dioxide 20.0 L, Anion Gap 10, BUN 24 H, Creatinine 1.82 H, Estim Creat Clear Calc 41.87, Est GFR (MDRD) Af Amer 50 L, Est GFR (MDRD) Non-Af 41 L, BUN/Creatinine Ratio 13.2, Glucose 95, Calcium 8.8 10/02/22 01:15: Procalcitonin 36.66 H 10/02/22 01:15: WBC 1.9 L, RBC 4.64, Hgb 13.4, Hct 39.6 L, MCV 85.3, MCH 28.9, MCHC 33.8, RDW Std Deviation 43.4, RDW Coeff of Deon 14.0, Plt Count 177, MPV 9.6, Immature Gran % (Auto) 0.000, Neut % (Auto) 63.3, Lymph % (Auto) 35.1, [place] % (Auto) 1.1, Eos % (Auto) 0.0, Baso % (Auto) 0.5, Absolute Neuts (auto) 1.2 L, Absolute Lymphs (auto) 0.66 L, Nucleated RBC % 0 10/02/22 01:15: Lactic Acid 3.6 H* 10/02/22 05:21: WBC 12.6 H, RBC 4.44 L, Hgb 12.8 L, Hct 38.4 L, MCV 86.5, MCH 28.8, MCHC 33.3, RDW Std Deviation 44.0 H, RDW Coeff of Deon 14.0, Plt Count 164, MPV 9.3, Immature Gran % (Auto) 0.500, Neut % (Auto) 90.7 H, Lymph % (Auto) 4.8 L, [place] % (Auto) 1.2, Eos % (Auto) 2.5, Baso % (Auto) 0.3, Absolute Neuts (auto) 11.5 H, Absolute Lymphs (auto) 0.61 L, Nucleated RBC % 0, Differential Comment SCANNED 10/02/22 05:21: Sodium 140, Potassium 3.6, Chloride 113 H, Carbon Dioxide 20.0 L, Anion Gap 7, BUN 23 H, Creatinine 1.65 H, Estim Creat Clear Calc 46.18, Est GFR (MDRD) Af Amer 56 L, Est GFR (MDRD) Non-Af 46 L, BUN/Creatinine Ratio 13.9, Glucose 107 H, Calcium 7.4 L, Total Bilirubin 0.70, AST 45 H, ALT 50, Alkaline Phosphatase 61, Total Protein 5.8 L, Albumin 2.7 L, Globulin 3.1, Albumin/Globulin Ratio 0.9 10/02/22 05:21: Lactic Acid 2.0 Radiography Diagnostic Testing: Radiology Impression Chest X-Ray 10/02/22 01:35 IMPRESSION: No evidence of cardiopulmonary disease. Electronically Signed: Billy Hogan DO at 1:54 EDT , Physical Exam Narrative GENERAL: cooperative HEENT: Atraumatic; normocephalic EYES; Anicteric, Normal Conjunctiva NECK; supple, normal thyroid, RESPIRATORY: Diminished to auscultation CARDIOVASCULAR: Regular S1 S2, GI: soft, normoactive bowel sounds, : No Renal angle tenderness; EXTREMITIES: No edema, no clubbing, MUSCULOSKELETAL: no muscle wasting NEURO: Awake; no lateralizing signs. SKIN: No Rash PSYCH; Flat affect Assessment & Plan Assessment/Plan (1) UTI (urinary tract infection): (2) Sepsis: PLAN: Plan Patient is a 57-year-old gentleman with recent prostate biopsy for elevated PSA. Performed at [facility] in [place] who presented to the emergency department with rigors and low blood pressure. An assessment of sepsis secondary to prostatitis made admitted to a monitored bed for further management 1. Sepsis secondary to acute prostatitis with gram-negative bacteremia ? Patient admitted to monitored bed was resuscitated with IV fluid per protocol after cultures have been obtained. Started on broad-spectrum antibiotic therapy with Zosyn pending final identification 2. Hematuria ? Secondary to patient recent prostate biopsy ? Monitoring H&H with plans to transfuse if hemoglobin falls below 7 or patient is deemed to be symptomatic 3. Hypertension - Blood pressure controlled, home medications continued with dose adjustment as needed 4. Class IV obesity with BMI of 43.1 ? Weight loss advised 5. DVT prophylaxis ? Early ambulation encouraged avoided the use of chemoprophylaxis given patient's hematuria Time spent in the patient's overall evaluation,decision-making process, review of diagnostic data, adjustment of management, discussion with other providers, nursing nursing and ancillary staff involved in patient's care documentation, 35 minutes Charges/Coding Visit Charges Inpatient E&M: 66354 Subs Hosp L2
[2022-10-02] MEDS: 0.9% Saline Lock 10 ML Syringe IV ×3 (07:46→21:28)
[2022-10-02] MEDS: Oseltamivir Phosphate 30 MG Capsule PO ×2 (07:46→21:26)
--- NOTE | 2022-10-02 09:45 | CASEMGMT ---
MADELYN LERMA Discharge Planning Assessment: Face to Face with patient for initial transition planning/care coordination assessment.?MADELYN LERMA introduced self and role at [facility], pt voices understanding.?Pt alert, oriented x4 and agreeable to participating in assessment with at bedside. Noted pt up ambulating in room independently upon entry. Care providers, pharmacy,?and demographics verified. ? Admitting dx: sepsis 2/2 prostatitis, Inf. B (asymptomatic) PCP: Bertrand Specialists: Jerry (urology) Preferred Pharmacy: [facility] Insurance: MMO Prescription Benefit: yes? Living Will/HPOA: yes, encouraged pt and pt's to bring in documents for inclusion in his medical record LNOK: [place] Living Arrangements: Pt lives with his and 2 sons (18yo and 13yo) in a single story home with 2 steps to enter. Pt states he is independent with all ADLs including self care and household tasks. Transportation: Pt drives and denies any concerns with transportation DME/HHC/SNF: Pt denies ? Plan: Return home with the support of his family. Pt denies any discharge needs at this time. Will continue to monitor and assist with discharge needs as identified. Bertram Hannah RN CM
[2022-10-02] MEDS: Fleet Enema 1 ML RC (10:24)
[2022-10-03 03:00] VITALS: PULSE 68
[2022-10-03 03:56] VITALS: BP 136/67; PULSE 77; RESP 18; TEMP 37.1; O2SAT 97
[2022-10-03 03:57] VITALS: BP 136/67; PULSE 77; RESP 18; TEMP 37.1; O2SAT 97
[2022-10-03] MEDS: 0.9% Saline Lock 10 ML Syringe IV (06:27)
--- NOTE | 2022-10-03 07:45 | PCM.PN.HOSP ---
Reason for Visit Reason for Visit: Diagnoses Sepsis, unspecified organism (10/02/22) Neutropenia, unspecified (10/02/22) Acidosis, unspecified (10/02/22) Influenza due to other identified influenza virus with other respiratory manifestations (10/02/22) Urinary tract infection, site not specified (10/02/22) Hematuria, unspecified (10/02/22) Bacteremia (10/02/22) Subjective Subjective Patient seen urine cultures resulted positive for E. coli sensitivities reviewed overall clinical condition continues to improve Objective Data Objective Data Vital Signs: Vital Signs Temp Pulse Resp BP Pulse Ox O2 Del Method 98.8 F 77 18 136/67 H 97 Room Air 10/03/22 03:57 10/03/22 03:57 10/03/22 03:57 10/03/22 03:57 10/03/22 03:57 10/03/22 03:57 Oxygen Delivery Method Room Air Weight: 124.738 kg Body Mass Index (BMI) 43.0 Intake & Output: Intake and Output for Last 24 Hours 10/01/22 10/02/22 10/03/22 23:59 23:59 23:59 Intake Total 4842.5 / 4842.5 50 / 50 Balance 4842.5 / 4842.5 50 / 50 Lab / Micro Data Result Diagrams: 10/03/22 07:50 10/03/22 07:50 Radiography Diagnostic Testing: Radiology Impression Prostate Ultrasound 10/02/22 04:53 IMPRESSION: 1. Prostatomegaly with increased vascularity can be associated with prostatitis. 2. 3.5 cm hypoechoic lesion in the central transitional zone could represent a BPH nodule, however, in the setting of history of biopsy, small hematoma/blood product is also possible. 3. No focal fluid collection. Electronically Signed: Serge Monsalve (Bro[place]), at 16:02 EDT , Physical Exam Narrative GENERAL: cooperative HEENT: Atraumatic; normocephalic EYES; Anicteric, Normal Conjunctiva NECK; supple, normal thyroid, RESPIRATORY: Diminished to auscultation CARDIOVASCULAR: Regular S1 S2, GI: soft, normoactive bowel sounds, : No Renal angle tenderness; EXTREMITIES: No edema, no clubbing, MUSCULOSKELETAL: no muscle wasting NEURO: Awake; no lateralizing signs. SKIN: No Rash PSYCH; Flat affect Assessment & Plan Assessment/Plan (1) UTI (urinary tract infection): (2) Sepsis: PLAN: Plan Patient is a 57-year-old gentleman with recent prostate biopsy for elevated PSA. Performed at [facility] in [place] who presented to the emergency department with rigors and low blood pressure. An assessment of sepsis secondary to prostatitis made admitted to a monitored bed for further management 1. Sepsis secondary to acute prostatitis with gram-negative bacteremia ? Patient admitted to monitored bed was resuscitated with IV fluid per protocol after cultures have been obtained. Started on broad-spectrum antibiotic therapy with Zosyn pending final identification ? 10/03/2022; Patient seen urine cultures resulted positive for E. coli sensitivities reviewed overall clinical condition continues to improve 2. Hematuria ? Secondary to patient recent prostate biopsy ? Monitoring H&H with plans to transfuse if hemoglobin falls below 7 or patient is deemed to be symptomatic 3. Hypertension - Blood pressure controlled, home medications continued with dose adjustment as needed 4. Class IV obesity with BMI of 43.1 ? Weight loss advised 5. DVT prophylaxis ? Early ambulation encouraged avoided the use of chemoprophylaxis given patient's hematuria Time spent in the patient's overall evaluation,decision-making process, review of diagnostic data, adjustment of management, discussion with other providers, nursing nursing and ancillary staff involved in patient's care documentation, 35 minutes Charges/Coding Visit Charges Inpatient E&M: 33976 Subs Hosp L2
[2022-10-03] MEDS: Oseltamivir Phosphate 30 MG Capsule PO (08:08)
[2022-10-03 08:16] LABS: Absolute Lymphocyte Count 0.89 X10^3/uL (0.83-4.51); Absolute Neutrophil Count 11.1 X10^3/uL (2.0-7.7); Basophil# 0.04 X10^3/uL; Basophil% 0.3 % (0-1); Eosinophil# 0.01 X10^3/uL; Eosinophils% 0.1 % (0-5); Hematocrit 36.6 % (40-54); Hemoglobin 12.5 g/dL (13.0-16.5); Lymphocyte # 0.89 X10^3/ul (0.83-4.51); Mean Corp Hgb Conc 34.2 g/dL (32-36); Mean Corpuscular Hgb 28.7 pg (27.0-32.0); Mean Corpuscular Volume 83.9 fL (80-94); Mean Platelet Vol. 9.7 fl (6.2-12.0); Monocyte# 0.63 X10^3/uL; Monocyte% 4.9 % (0-10); NRBC Flagged by Analyzer 0 % (0-5); Neutrophil # 11.05 X10^3/uL (2.7-7.7); Neutrophil % 86.8 % (47-70); Platelet Count 142 K/mm3 (150-450); RBC Distribution Width CV 13.9 % (11.6-14.6); Red Blood Count 4.36 M/mm3 (4.6-6.2); White Blood Count 12.7 K/mm3 (4.4-11.0)
[2022-10-03 08:21] LABS: International Normalized Ratio 1.2; Prothrombin Time (Protime)PT. 15.5 SECONDS (11.7-14.9)
[2022-10-03 09:02] LABS: Anion Gap 10 (5-15); BUN 17 mg/dL (7-18); BUN/Creat Ratio 15.2 RATIO (10-20); Calcium,Total 8.5 mg/dL (8.5-10.1); Chloride 104 mmol/L (98-107); Creatinine, Serum 1.12 mg/dL (0.70-1.30); EST Glomerular Filtration Rate 72 mL/min (>60); Est Glom Filt Rate - Afr Amer 87 mL/min (>60); Estimated Creatinine Clearance 68.03 ml/min; Glucose 89 mg/dL (74-106); Magnesium 1.8 mg/dL (1.6-2.6); Potassium 3.8 mmol/L (3.5-5.1); Sodium Level 134 mmol/L (136-145)
--- NOTE | 2022-10-03 09:56 | PCM.DC.SUM ---
Providers Date of Admission: 10/02/22 Date of Discharge: 10/03/22 Primary Care Physician: Dr. Billy Thurston MD Reason For Visit: SEPSIS BACTEREMIA Diagnosis Discharge Diagnosis (1) UTI (urinary tract infection): Status: Acute Code(s): N39.0 - Urinary tract infection, site not specified (2) Sepsis: Status: Acute Code(s): A41.9 - Sepsis, unspecified organism Plan Patient is a 57-year-old gentleman with recent prostate biopsy for elevated PSA. Performed at [facility] in [place] who presented to the emergency department with rigors and low blood pressure. An assessment of sepsis secondary to prostatitis made admitted to a monitored bed for further management 1. Sepsis secondary to acute prostatitis with gram-negative bacteremia ? Patient admitted to monitored bed was resuscitated with IV fluid per protocol after cultures have been obtained. Started on broad-spectrum antibiotic therapy with Zosyn pending final identification ? 10/03/2022; Patient seen urine cultures resulted positive for E. coli sensitivities reviewed overall clinical condition continues to improve 2. Hematuria ? Secondary to patient recent prostate biopsy ? Monitoring H&H with plans to transfuse if hemoglobin falls below 7 or patient is deemed to be symptomatic 3. Hypertension - Blood pressure controlled, home medications continued with dose adjustment as needed 4. Class IV obesity with BMI of 43.1 ? Weight loss advised 5. DVT prophylaxis ? Early ambulation encouraged avoided the use of chemoprophylaxis given patient's hematuria Time spent in the patient's overall evaluation,decision-making process, review of diagnostic data, adjustment of management, discussion with other providers, nursing nursing and ancillary staff involved in patient's care documentation, 35 minutes Medications at Discharge Home Medications lisinopril 5 mg tablet 5 mg PO DAILY Check with primary doctor 10/01/22 cefdinir 300 mg capsule 300 mg PO BID #14 caps 10/03/22 Hospital Course Summary of Care Provided Minutes Spent on Discharge: 35 Physical Exam Narrative GENERAL: cooperative HEENT: Atraumatic; normocephalic EYES; Anicteric, Normal Conjunctiva NECK; supple, normal thyroid, RESPIRATORY: Diminished to auscultation CARDIOVASCULAR: Regular S1 S2, GI: soft, normoactive bowel sounds, : No Renal angle tenderness; EXTREMITIES: No edema, no clubbing, MUSCULOSKELETAL: no muscle wasting NEURO: Awake; no lateralizing signs. SKIN: No Rash PSYCH; Flat affect Weight / BMI Weight Weight: 124.738 kg Body Mass Index (BMI) 43.0 ABG / Lab / Microbiology Data Result Diagrams: 10/03/22 07:50 10/03/22 07:50 Laboratory: Laboratory Results - last 24 hr 10/03/22 07:50: WBC 12.7 H, RBC 4.36 L, Hgb 12.5 L, Hct 36.6 L, MCV 83.9, MCH 28.7, MCHC 34.2, RDW Std Deviation 43.0, RDW Coeff of Deon 13.9, Plt Count 142 L, MPV 9.7, Immature Gran % (Auto) 0.900, Neut % (Auto) 86.8 H, Lymph % (Auto) 7.0 L, [place] % (Auto) 4.9, Eos % (Auto) 0.1, Baso % (Auto) 0.3, Absolute Neuts (auto) 11.1 H, Absolute Lymphs (auto) 0.89, Nucleated RBC % 0 10/03/22 07:50: PT 15.5 H, INR 1.2 10/03/22 07:50: Sodium 134 L, Potassium 3.8, Chloride 104, Carbon Dioxide 20.0 L, Anion Gap 10, BUN 17, Creatinine 1.12, Estim Creat Clear Calc 68.03, Est GFR (MDRD) Af Amer 87, Est GFR (MDRD) Non-Af 72, BUN/Creatinine Ratio 15.2, Glucose 89, Calcium 8.5, Magnesium 1.8 Radiography Diagnostic Testing: Radiology Impression Prostate Ultrasound 10/02/22 04:53 IMPRESSION: 1. Prostatomegaly with increased vascularity can be associated with prostatitis. 2. 3.5 cm hypoechoic lesion in the central transitional zone could represent a BPH nodule, however, in the setting of history of biopsy, small hematoma/blood product is also possible. 3. No focal fluid collection. Electronically Signed: Serge Monsalve ([place]), at 16:02 EDT , D/C Instructions Discharge Diet: No restrictions Discharge Activity: Return to Normal Activity Call your doctor if you observe: Fever of 101 or Higher, Shortness of breath, Fainting spells and Chest pain Meaningful Use Info Meaningful Use Diagnoses (Choose all that apply): None applicable Discharge Plan Admission Admit Date/Time: 10/02/22 02:30 Attending Provider: Russel Adan Primary Care Provider: Billy Thurston Consulting Providers: Reed Hidalgo Discharge Orders/Prescriptions Prescriptions: New cefdinir 300 mg capsule 300 mg PO BID Qty: 14 0RF Continued lisinopril 5 mg tablet 5 mg PO DAILY Label Comments: take 1 tablet by mouth once daily Discontinued nitrofurantoin macrocrystal 100 mg capsule 100 mg PO BID Rx Instructions: must administer with a meal/food Referrals / Follow Up: Billy Thurston MD [Primary Care Provider] - Within 1 Week Disposition Disposition (needs filled in before D/C Order can be placed): Home, Self Care Charges/Coding Visit Charges Inpatient E&M: 62706 Disch Hosp >30min
[2022-10-03 10:45] VITALS: BP 141/74; PULSE 76; RESP 18; TEMP 37.7; O2SAT 99
== END 2022-10-03 11:06 | disposition home or self-care (01) | DRG 872 ==
LOC: ED 02:38 → PCU 02:39
PROVIDERS: Emergency Provider Emergency Medicine; PCP Family Medicine; Visit Provider Internal Medicine
DX: A41.9 Sepsis, unspecified organism (principal); E87.20 Acidosis, unspecified; Z68.41 Body mass index [BMI] 40.0-44.9, adult; N39.0 Urinary tract infection, site not specified; N41.0 Acute prostatitis; D70.9 Neutropenia, unspecified; F17.220 Nicotine dependence, chewing tobacco, uncomplicated; I10 Essential (primary) hypertension; B96.20 Unspecified Escherichia coli [E. coli] as the cause of diseases classified elsewhere; E66.9 Obesity, unspecified; R31.9 Hematuria, unspecified
CPT/HCPCS: 36415; 71045; 76872; 80048; 80053; 83605; 83735; 84145; 85025; 85610; 94762; 99285; J7030; J7040; A4216

== ENCOUNTER 2022-10-08 07:43 | Emergency (ER) | payer OTHER, SELFPAY ==
[2022-10-08 07:45] VITALS: BP 141/74; PULSE 80; RESP 14; TEMP 37.2; O2SAT 97; BMI 41.9
[2022-10-08 07:56] VITALS: TEMP 36.9
[2022-10-08 09:09] LABS: Absolute Lymphocyte Count 1.26 X10^3/uL (0.83-4.51); Absolute Neutrophil Count 11.3 X10^3/uL (2.0-7.7); Basophil% 0.7 % (0-1); Eosinophil# 0.13 X10^3/uL; Hematocrit 39.6 % (40-54); Hemoglobin 13.3 g/dL (13.0-16.5); Lymphocyte # 1.26 X10^3/ul (0.83-4.51); Lymphocyte % 9.4 % (19-41); Mean Corp Hgb Conc 33.6 g/dL (32-36); Mean Corpuscular Hgb 28.1 pg (27.0-32.0); Mean Corpuscular Volume 83.7 fL (80-94); Monocyte# 0.29 X10^3/uL; Monocyte% 2.2 % (0-10); NRBC Flagged by Analyzer 0 % (0-5); Neutrophil % 83.8 % (47-70); Platelet Count 336 K/mm3 (150-450); RBC Distribution Width CV 14.5 % (11.6-14.6); RBC Distribution Width SD 43.8 fl (35.1-43.9); Red Blood Count 4.73 M/mm3 (4.6-6.2); White Blood Count 13.5 K/mm3 (4.4-11.0)
--- NOTE | 2022-10-08 10:28 | EX.ED.DYSGE1 ---
HPI History of Present Illness Chief Complaint: Fever Informant: patient Narrative Narrative: Patient had some prostate biopsies done because of an elevated PSA, and then developed an infection from a and he states he was admitted here because he was septic from the infection, discharged earlier in the week on an antibiotic that needed to be changed but he is still on an antibiotic, currently Augmentin. He was on cefdinir but had a reaction to it. He has been having some occasional hematuria which is painful briefly, and urinating frequently, but no other urinary symptoms and they have been gradually improving. Today he woke up and he had rigors/chills like he did when he developed fevers prior to or around the time of admission. He was told to return for any fevers of 100.4 or higher. His significant other brought him right to the ER this happened less than an hour ago, and he took Tylenol on the way here and now he has no more chills. He took Tylenol less than 15 minutes prior to arrival. They did not check his temperature. He feels fine right now. PFSH PFS Medical History Hypertension Obesity Home Medications lisinopril 5 mg tablet 5 mg PO DAILY Check with primary doctor 10/01/22 [History Last Taken 10/01/22] cefdinir 300 mg capsule 300 mg PO BID #14 caps 10/03/22 [Rx Last Taken Unknown] Allergy/AdvReac Type Severity Reaction Status Date / Time No Known Allergies Allergy Verified 10/08/22 07:44 Family History (Updated 10/02/22 @ 02:[address] Reed Hidalgo DO) Father Heart valve replaced Social History Smoking Status: Current every day smoker tobacco type: smokeless tobacco alcohol intake: current alcohol intake frequency: holidays/special occasions only ROS ROS ED Constitutional Constitutional ED: Reports as per HPI, fever(s) and subjective; Denies chills Eyes Eyes: Denies change in vision or diplopia ENT ENT ED: Denies rhinorrhea or sore throat Cardiovascular Cardiovascular: Denies chest pain or palpitations Respiratory/Chest Respiratory/Chest: Denies cough or dyspnea Gastrointestinal Gastrointestinal: Denies abdominal pain, diarrhea, nausea or vomiting Genitourinary Genitourinary ED: Denies dysuria or hematuria Musculoskeletal Musculoskeletal: Denies back pain or neck pain Integumentary Denies abscess or rash Neurologic Neurologic: Denies headache(s), paresthesias or weakness Psychiatric Psychiatric: Denies anxiety or suicidal thoughts EXAM Physical Exam Const Vital Signs: 10/08/22 07:45 10/08/22 07:56 10/08/22 07:58 Temperature 99 F 98.4 F Temperature Source Temporal Oral Pulse Rate 80 Respiratory Rate 14 Respiratory Effort Normal Non-Labored Respiratory Pattern Normal Blood Pressure 141/74 H Blood Pressure Mean 96 Pulse Ox 97 Oxygen Delivery Method Room Air Positive well nourished and well developed General Appearance ED: well developed and NAD HEENT Reports moist mucous membranes normocephalic and atraumatic Eyes PERRL and EOMs intact bilaterally Neck full ROM and supple Resp normal respiratory effort and clear to auscultation bilaterally Cardio regular rate, regular rhythm and no murmurs Rate: Negative for tachycardic GI non-tender and non-distended Auscultation: normoactive bowel sounds Palpation: soft Back/Spine no CVA tenderness General Back: other FROM Extremity normal to inspection General Extremety ED: Negative for edema, pulses abnormal or tenderness General Extremity: Negative for edema or pulses abnormal Neuro oriented x3, CN's II-XII intact bilaterally and no sensory deficits noted Sensorium / Orientation: awake and alert Motor Exam: strength 5/5 throughout Skin no rashes or lesions noted and no wounds MDM MDM MDM Narrative Medical decision making narrative: Patient has mild leukocytosis 13.5, there is a predilection of neutrophils with 2.9% bands. He was neutropenic when he was admitted apparently, and he certainly is not neutropenic now which is good. He is well-appearing, we rechecked his temperature initially 99 now 98.4, I do not know if he had a true fever or not but given the scenario I thought it was reasonable to get the CBC and blood cultures. He is very difficult stick and we had to wait for lab to come up and do the second draw, he provided a urinalysis and there was delay in getting results from the lab for unknown reasons, they said they did not receive it although we sent it. This all contributed to delay and a longer observation period of the patient than desired, however he did not develop any symptoms nor a true fever. I do not think we need to admit him and I do not think we need to give him any new antibiotics or change his current antibiotic, which I would continue taking for now; I did review his recent urine culture showing E. coli that is sensitive to the antibiotic he is on. History & Record Review Additional record(s) reviewed:: Prior inpatient record and Prior labs Lab Data Attestation: I reviewed the patient's lab results. Labs: Laboratory Results - last 24 hr 10/08/22 10/08/22 09:00 09:26 WBC 13.5 H RBC 4.73 Hgb 13.3 Hct 39.6 L MCV 83.7 MCH 28.1 MCHC 33.6 RDW Std Deviation 43.8 RDW Coeff of Deon 14.5 Plt Count 336 MPV 9.0 Immature Gran % (Auto) 2.900 H Neut % (Auto) 83.8 H Lymph % (Auto) 9.4 L [place] % (Auto) 2.2 Eos % (Auto) 1.0 Baso % (Auto) 0.7 Absolute Neuts (auto) 11.3 H Absolute Lymphs (auto) 1.26 Nucleated RBC % 0 Urine Color Yellow Urine Clarity Sl. Cloudy Urine pH 6.0 Ur Specific [place] 1.010 Urine Protein 30 H Urine Glucose (UA) Normal Urine Ketones 5 H Urine Occult Blood 250 H Urine Nitrite Negative Urine Bilirubin Negative Urine Urobilinogen Normal Ur Leukocyte Esterase 100 H Discharge Plan Triage Chief Complaint: Fever ED Provider: Valentín Marcelino Dx/Rx/DC Orders Clinical Impression: Shaking chills Instructions: Urinary Tract Infections in Men Prescriptions: No Action lisinopril 5 mg tablet 5 mg PO DAILY Label Comments: take 1 tablet by mouth once daily cefdinir 300 mg capsule 300 mg PO BID Qty: 14 0RF Primary Care Provider: Billy Thurston Referrals: Billy Thurston MD [Primary Care Provider] - As soon as possible Activity Restrictions/Additional Instructions: Continue your Augmentin as prescribed; otherwise, the same discharge instructions you were given from the hospital still apply. Repeat cultures that we performed should be done/available in 2-3 days. If positive someone should let you know but make sure you follow-up with your doctor to make sure. Disposition Disposition: Home, Self Care
[2022-10-08 10:43] LABS: Mucous, Urine 0 SEEN /hpf (<or=2+)
[2022-10-08 10:50] LABS: Color, Urine Yellow (Yellow); Glucose, Dipstick Normal (Normal); Ketone-Dipstick 5 mg/dl (Negative); Leukocyte Esterase-Dipstick 100 /ul (Negative); Nitrite-Dipstick Negative (Negative); Occult Blood-Urine 250 /ul (Negative); Protein-Dipstick 30 mg/dl (Negative); Urine Bilirubin Dipstick Negative (Negative); Urine Clarity Sl. Cloudy (Clear); Urine Urobilinogen Normal (Normal)
[2022-10-08 11:04] LABS: Bacteria 1+ /hpf (None Seen); Red Blood Cells-Urine 25-50 SEEN /hpf (0-5); Squamous Epithelial Cells - UA 0-5 SEEN /hpf (0-5); White Blood Cells 10-25 SEEN /hpf (0-5)
[2022-10-08 11:26] VITALS: BP 134/69; PULSE 77; RESP 16; TEMP 36.6; O2SAT 97
== END 2022-10-08 11:27 | disposition home or self-care (01) ==
PROVIDERS: Emergency Provider Emergency Medicine; PCP Family Medicine; Visit Provider Emergency Medicine
DX: R68.83 Chills (without fever) (principal); F17.220 Nicotine dependence, chewing tobacco, uncomplicated; I10 Essential (primary) hypertension; Z79.899 Other long term (current) drug therapy
CPT/HCPCS: 36415; 81001; 85025; 87040; 87077; 87186; 99282

== ENCOUNTER 2022-10-14 15:10 | Inpatient (IN) | payer OTHER, SELFPAY ==
[2022-10-14 15:10] VITALS: BP 146/78; PULSE 77; RESP 18; TEMP 36.1; O2SAT 99
--- NOTE | 2022-10-14 16:04 | EDS_ITS ---
HPI <MAMADOU Vargas - Last Filed: 10/14/22 17:10> History of Present Illness Chief Complaint: Abn Labs Narrative Narrative: Patient is a 57-year-old male with history of obesity, hypertension who presents to the emergency department for positive blood cultures. Patient had a prostate biopsy completed, within 24 hours, he had a fever and chills. He was admitted here from September 30 to . He did have the diagnosis of sepsis. Patient was discharged on October 03, was seen again on October 08 for ongoing fever, chills. He did have blood cultures completed then, he was on cefdinir and then placed on Augmentin secondary to rash. Patient had positive blood cultures for E. coli, has continued to feel weak, having on and off fevers and is here for reevaluation. PFSH <MAMADOU Vargas - Last Filed: 10/14/22 17:10> PFSH Medical History Hypertension Obesity Home Medications lisinopril 5 mg tablet 5 mg PO DAILY BP 10/01/22 [History Last Taken 10/12/22] multivitamin 1 tab PO DAILY SUPPLEMENT 10/14/22 [History Last Taken 10/12/22] Allergy/AdvReac Type Severity Reaction Status Date / Time cefdinir Allergy Hives Verified 10/14/22 18:51 Family History Father Heart valve replaced Social History Smoking Status: Current every day smoker tobacco type: smokeless tobacco alcohol intake: current alcohol intake frequency: holidays/special occasions only ROS <MAMADOU Vargas - Last Filed: 10/14/22 17:10> ROS ED ROS Narrative Constitutional: Negative for weight loss. Positive fever, chills, weakness Eyes: Negative for vision loss, vision change, double vision ENT: Negative for any sore throat, ear pain, congestion Cardiovascular: Negative for any chest pain, tightness, palpitations Respiratory: Negative for any cough, sputum production, hemoptysis, dyspnea, dyspnea on exertion, orthopnea Gastrointestinal: Negative for any abdominal pain, nausea, vomiting, diarrhea, constipation, blood in stool, blood in vomit : Negative for any urinary frequency, dysuria, retention, blood in urine Muscle skeletal: Negative for any muscle joint pain, stiffness, arthralgias, neck pain, back pain. Positive for myalgia Neurological: Negative for any headache, syncope, numbness or tingling, dizziness Skin: Negative for any rashes, lumps, itching, abrasions, lacerations Psychiatric: Negative for any depression, anxiety, stress, suicidal ideation, homicidal ideation Hematologic: Negative for any easy bruising, excessive bruising, easy bleeding Allergies: Negative for any eczema, hives, rash EXAM <MAMADOU Vargas - Last Filed: 10/14/22 17:10> Physical Exam Narrative Exam Narrative: Vital signs reviewed. Patient appears to be in no distress. HEET: Head normocephalic atraumatic, TMs clear bilaterally. Posterior pharynx is clear, moist mucous membranes. Nares clear bilaterally. Neck: Supple with no lymphadenopathy or tenderness. No signs of meningismus, negative jolt sign. Cardiac: Regular rate and rhythm no murmurs gallops or rubs, equal peripheral pulses bilaterally. Respiratory: Lungs clear to auscultation bilaterally. No chest tenderness. Abdomen: Soft, nontender, nondistended. No abdominal bruit or pulsatile masses. No hepatosplenomegaly Extremities: No peripheral edema, no signs of gross trauma or deformity. Active full range of motion of all extremities. Neuro: Cranial nerves II through XII intact, no focal neurological deficits. Skin: Clean dry and intact with no rash, purpura, petechiae, vesicles or pustules. Backs/flank: No CVA tenderness, no midline spinal tenderness, no deformity. Psych: Normal mood and affect. No SI, HI or acute psychosis. Const Vital Signs: 10/14/22 15:10 10/14/22 15:55 Temperature 97 F L Temperature Source Temporal Pulse Rate 77 Respiratory Rate 18 Respiratory Effort Normal Non-Labored Respiratory Pattern Normal Blood Pressure 146/78 H Blood Pressure Mean 100 Pulse Ox 99 Oxygen Delivery Method Room Air Positive well nourished and well developed General Appearance ED: well developed <Dr. Valentín Marcelino MD - Last Filed: 10/14/22 23:03> Physical Exam Const Vital Signs: 10/14/22 15:10 10/14/22 15:55 Temperature 97 F L Temperature Source Temporal Pulse Rate 77 Respiratory Rate 18 Respiratory Effort Normal Non-Labored Respiratory Pattern Normal Blood Pressure 146/78 H Blood Pressure Mean 100 Pulse Ox 99 Oxygen Delivery Method Room Air [facility] <MAMADOU Vargas - Last Filed: 10/14/22 17:10> [facility] Lab Data Labs: Laboratory Results - last 24 hr 10/14/22 10/14/22 16:08 16:08 WBC 13.8 H RBC 4.59 L Hgb 12.8 L Hct 40.0 MCV 87.1 MCH 27.9 MCHC 32.0 RDW Std Deviation 47.1 H RDW Coeff of Deon 14.7 H Plt Count 577 H MPV 8.7 Immature Gran % (Auto) 1.000 H Neut % (Auto) 74.7 H Lymph % (Auto) 16.7 L [place] % (Auto) 6.4 Eos % (Auto) 0.8 Baso % (Auto) 0.4 Absolute Neuts (auto) 10.3 H Absolute Lymphs (auto) 2.31 Nucleated RBC % 0 Sodium 134 L Potassium 4.3 Chloride 102 Carbon Dioxide 26.0 Anion Gap 6 BUN 19 H Creatinine 0.95 Estim Creat Clear Calc 80.21 Est GFR (MDRD) Af Amer 105 Est GFR (MDRD) Non-Af 87 BUN/Creatinine Ratio 19.9 Glucose 108 H Calcium 9.1 Treatment and Re-Evaluation :: Patient appears generally well, patient appears nontoxic. Patient's vital signs are stable, he does present to the emergency department for positive blood cultures with E. coli. Secondary to the patient continuing having fever and chills, the patient did have an IV established, IV fluids, as well as CBC, BMP. He will be started on Unasyn which covers E. coli. He is failed outpatient therapy. Patient's laboratory values show slight leukocytosis white blood count of 13.8, patient's chemistries were unremarkable. Patient was started on IV Unasyn. Secondary to the patient feeling outpatient therapy, blood cultures positive for E. coli, the patient still symptomatic, patient be admitted to the hospital. The patient as well as the patient's understand, I spoke with hospitalist who accept the patient. <Dr. Valentín Marcelino MD - Last Filed: 10/14/22 23:03> [facility] Lab Data Attestation: I reviewed the patient's lab results. Labs: Laboratory Results - last 24 hr 10/14/22 10/14/22 16:08 16:08 WBC 13.8 H RBC 4.59 L Hgb 12.8 L Hct 40.0 MCV 87.1 MCH 27.9 MCHC 32.0 RDW Std Deviation 47.1 H RDW Coeff of Deon 14.7 H Plt Count 577 H MPV 8.7 Immature Gran % (Auto) 1.000 H Neut % (Auto) 74.7 H Lymph % (Auto) 16.7 L [place] % (Auto) 6.4 Eos % (Auto) 0.8 Baso % (Auto) 0.4 Absolute Neuts (auto) 10.3 H Absolute Lymphs (auto) 2.31 Nucleated RBC % 0 Sodium 134 L Potassium 4.3 Chloride 102 Carbon Dioxide 26.0 Anion Gap 6 BUN 19 H Creatinine 0.95 Estim Creat Clear Calc 80.21 Est GFR (MDRD) Af Amer 105 Est GFR (MDRD) Non-Af 87 BUN/Creatinine Ratio 19.9 Glucose 108 H Calcium 9.1 Treatment and Re-Evaluation Comments:: Seen and evaluated independently and in conjunction with nurse practitioner. Agree with notes above unless documented otherwise. Patient was seen here by myself 6 days ago for a subjective fever for which we did blood cultures and a CBC, patient is here now because he was called today regarding the results of this. He states he has been having occasional recurrent fevers and chills but otherwise feeling fine as he is now. Exam: Well-appearing no acute distress no tachycardia, normal neurologic exam Plan: Admission for IV antibiotics for E. coli bacteremia due to UTI Discharge Plan Dx/Rx/DC Orders Clinical Impression: Bacteremia due to Escherichia coli Disposition Disposition: Acute Care Hospital [facility] Discharge Date/Time: 10/14/22 18:22
[2022-10-14] MEDS: 0.9% Normal Saline 1,000 ML 1000 ML IV (16:14)
[2022-10-14 16:18] VITALS: BMI 42.2
[2022-10-14 16:23] LABS: Absolute Lymphocyte Count 2.31 X10^3/uL (0.83-4.51); Absolute Neutrophil Count 10.3 X10^3/uL (2.0-7.7); Basophil# 0.06 X10^3/uL; Basophil% 0.4 % (0-1); Eosinophil# 0.11 X10^3/uL; Eosinophils% 0.8 % (0-5); Hemoglobin 12.8 g/dL (13.0-16.5); Lymphocyte # 2.31 X10^3/ul (0.83-4.51); Lymphocyte % 16.7 % (19-41); Mean Corpuscular Hgb 27.9 pg (27.0-32.0); Mean Corpuscular Volume 87.1 fL (80-94); Mean Platelet Vol. 8.7 fl (6.2-12.0); Monocyte# 0.89 X10^3/uL; Monocyte% 6.4 % (0-10); NRBC Flagged by Analyzer 0 % (0-5); Neutrophil % 74.7 % (47-70); Platelet Count 577 K/mm3 (150-450); RBC Distribution Width CV 14.7 % (11.6-14.6); RBC Distribution Width SD 47.1 fl (35.1-43.9); Red Blood Count 4.59 M/mm3 (4.6-6.2); White Blood Count 13.8 K/mm3 (4.4-11.0)
[2022-10-14 16:35] LABS: Anion Gap 6 (5-15); BUN 19 mg/dL (7-18); BUN/Creat Ratio 19.9 RATIO (10-20); Calcium,Total 9.1 mg/dL (8.5-10.1); Chloride 102 mmol/L (98-107); Creatinine, Serum 0.95 mg/dL (0.70-1.30); EST Glomerular Filtration Rate 87 mL/min (>60); Est Glom Filt Rate - Afr Amer 105 mL/min (>60); Estimated Creatinine Clearance 80.21 ml/min; Glucose 108 mg/dL (74-106); Potassium 4.3 mmol/L (3.5-5.1); Sodium Level 134 mmol/L (136-145)
--- NOTE | 2022-10-14 17:04 | NURSING ---
DR WEI TONEY
--- NOTE | 2022-10-14 17:06 | PCM.HP.STD ---
[facility] - General General Date of Admission: 10/14/22 Date of Service: 10/14/22 Chief Complaint: Persisting fever, chills and E. coli bacteremia in blood culture. HPI Narrative AYE JONAS, is a 57 M who presents to ED with persistent fever chills and last blood culture on 10/08/2022 drawn in ED after recent admission between 10/02/2022 to 10/03/2022. The patient was last admitted for sepsis secondary to acute prostatitis after prostate biopsy at [facility] by urologist on 09/30/2022.. Prostate biopsy was performed for elevated PSA. Patient was treated with IV Zosyn and then discharged on cefdinir. Patient had prostate ultrasound which shows prostatomegaly with increased vascularity with 3.5 cm hypoechoic lesion in central transitional zone. No focal fluid collection. said that prostate biopsy came to be negative for cancer/malignancy. The patient also had abdomen pelvis CT on on 10/01 here which showed 1.4 x 1.9 cm cyst in the upper outer aspect of right kidney and 4.2 x 4.3 heterogeneous mass inferior pole of left kidney. Patient had MRI of the kidney in [facility] which shows mass in left kidney which the said she was called for that MRI result before coming here. Patient continued to have fever. Repeat blood culture on 10/08/2022 shows E. coli sensitive to ceftriaxone ampicillin but resistant to fluoroquinolones. Patient was given Unasyn in ED. Patient is further admitted. [facility] Medical History Hypertension Obesity Home Medications lisinopril 5 mg tablet 5 mg PO DAILY BP 10/01/22 [History Last Taken 10/12/22] multivitamin 1 tab PO DAILY SUPPLEMENT 10/14/22 [History Last Taken 10/12/22] Allergy/AdvReac Type Severity Reaction Status Date / Time No Known Allergies Allergy Verified 10/08/22 07:44 Family History Father Heart valve replaced Social History Smoking Status: Current every day smoker tobacco type: smokeless tobacco alcohol intake: current alcohol intake frequency: holidays/special occasions only ROS ROS Narrative Constitutional: Reports fatigue and weakness. HEENT: Reports systems reviewed and no addt'l complaints, except as documented Respiratory/Chest: No acute shortness of breath or respiratory distress or wheezing. CVS: No chest pain or pressure or tightness. Gastrointestinal: Denies coffee ground emesis, hematemesis or vomiting. No tenesmus. Genitourinary: Burning micturition at that initial stream of urine mainly in penile urethra. No hematuria. No rectal pain on defecation. Musculoskeletal: Denies acute joint pain or limited range of motion. No acute injury Neurologic: Denies seizure-like symptoms. No acute strokelike symptoms. skin: No ulcer. No rash Endocrinology: Reports systems reviewed and no addt'l complaints, except as documented Hematologic/Lymphatic: Reports systems reviewed and no addt'l complaints, except as documented Rest 14 ROS are negative except as mentioned in HPI Vital Signs Vital Signs Vital Signs: 10/14/22 15:10 10/14/22 15:55 Temperature 97 F L Temperature Source Temporal Pulse Rate 77 Respiratory Rate 18 Respiratory Effort Normal Non-Labored Respiratory Pattern Normal Blood Pressure 146/78 H Blood Pressure Mean 100 Pulse Ox 99 Oxygen Delivery Method Room Air Weight Weight: 269 lb 10.005 oz Body Mass Index (BMI) 42.2 Physical Exam Narrative General: Alert, Oriented x3, Cooperative HEENT: Atraumatic, PERRLA, EOMI, Normocephalic Oral: Oral mucosa moist. No Gingival or Mucosal Lesions/ Ulcerations Neck: Supple, No JVD, Negative Carotid Bruits Lungs: Air entry equal in bilateral lung bases. No crepitation/rhonchi Cardiovascular: Regular rate, Regular Rhythm, Normal S1, Normal S2, No murmurs Abdomen: Bowel Sounds Present, Soft, Non Tender, Non-Distended : Left testis mildly increased in size but does not feel like fluid or hydrocele or pyocele. No acute tenderness or torsion. No urethral or perineal tenderness. Rectal exam was not performed as patient said he had multiple rectal exams. Extremities: No edema, Capillary Refill Less than 3 Seconds Skin: No rashes, No breakdown Musculoskeletal: No Tenderness to Palpation of Joints or Extremities Neurological: Cranial nerves II-XII grossly intact, DTR 2+/4 and Symmetrical, Neuro grossly intact Psych/Mental Status: Normal Affect, Appropriate. Results Lab / Micro Data Result Diagrams: 10/14/22 16:08 10/14/22 16:08 Labs: Laboratory Results - last 24 hr 10/14/22 16:08: WBC 13.8 H, RBC 4.59 L, Hgb 12.8 L, Hct 40.0, MCV 87.1, MCH 27.9, MCHC 32.0, RDW Std Deviation 47.1 H, RDW Coeff of Deon 14.7 H, Plt Count 577 H, MPV 8.7, Immature Gran % (Auto) 1.000 H, Neut % (Auto) 74.7 H, Lymph % (Auto) 16.7 L, [place] % (Auto) 6.4, Eos % (Auto) 0.8, Baso % (Auto) 0.4, Absolute Neuts (auto) 10.3 H, Absolute Lymphs (auto) 2.31, Nucleated RBC % 0 10/14/22 16:08: Sodium 134 L, Potassium 4.3, Chloride 102, Carbon Dioxide 26.0, Anion Gap 6, BUN 19 H, Creatinine 0.95, Estim Creat Clear Calc 80.21, Est GFR (MDRD) Af Amer 105, Est GFR (MDRD) Non-Af 87, BUN/Creatinine Ratio 19.9, Glucose 108 H, Calcium 9.1 Assessment & Plan Assessment/Plan (1) Bacteremia due to Escherichia coli: PLAN: Plan 57-year-old gentleman is being admitted for persistent fever and chills with E. coli bacteremia latest on 10/08/2022. 1.? Persistent E. coli bacteremia after prostatic biopsy/complicated acute prostatitis: Patient vitals are in normal range. Still febrile. No leukocytosis. The patient does not look toxic or septic. Started on IV ceftriaxone as per culture and sensitivity and IV fluid normal saline. ID consult. Patient had recent CT abdomen on 10/01 and MRI of kidneys today in [facility] [place]. Try to get medical record. Blood cultures x2, UA and urine cultures ordered in ED. Hematuria from prostate biopsy has resolved. 2.? Left kidney mass: The patient also had abdomen pelvis CT on on 10/01 here which showed 1.4 x 1.9 cm cyst in the upper outer aspect of right kidney and 4.2 x 4.3 heterogeneous mass inferior pole of left kidney. Patient had MRI of the kidney in [facility], [place] which shows mass in left kidney which the said she was called for that MRI result before coming here. said that prostate biopsy came to be negative for cancer/malignancy. 3.? Hypertension - Blood pressure controlled, home medications continued with dose adjustment as needed 4.? Class IV obesity with BMI of 42.2 kg/m? ? Weight loss advised 5.Recent acute anemia due to prostatic biopsy and hematuria: Hematuria has resolved. Patient hemoglobin 12.8, similar to the previous admission, 12.5 and 12.8 g%. Patient baseline hemoglobin about 15 g%. DVT prophylaxis: Moderate-risk: Lovenox 40 mg subcu daily. Discontinue if platelet count drops less than 50,000 or hemoglobin less than 8 g% Living will/advanced directive/end of life care: Patient does not have living will or advanced directive. His is next of kin and power of energy attorney for his health. After discussion of benefits/risks procedures involved with full code, DNR CC arrest and DNR CC, the patient opted for full code. Patient does want artificial life support including intubation, tube feed, ventilator and/chest compression, central venous catheter, vasopressor and DC shock if needed Total time spent in [id number] encounter in discussion of advanced directive 17 minutes. Laboratory Results 10/14/22 16:08: WBC 13.8 H, RBC 4.59 L, Hgb 12.8 L, Hct 40.0, MCV 87.1, MCH 27.9, MCHC 32.0, RDW Std Deviation 47.1 H, RDW Coeff of Deon 14.7 H, Plt Count 577 H, MPV 8.7, Immature Gran % (Auto) 1.000 H, Neut % (Auto) 74.7 H, Lymph % (Auto) 16.7 L, [place] % (Auto) 6.4, Eos % (Auto) 0.8, Baso % (Auto) 0.4, Absolute Neuts (auto) 10.3 H, Absolute Lymphs (auto) 2.31, Nucleated RBC % 0 10/14/22 16:08: Sodium 134 L, Potassium 4.3, Chloride 102, Carbon Dioxide 26.0, Anion Gap 6, BUN 19 H, Creatinine 0.95, Estim Creat Clear Calc 80.21, Est GFR (MDRD) Af Amer 105, Est GFR (MDRD) Non-Af 87, BUN/Creatinine Ratio 19.9, Glucose 108 H, Calcium 9.1 Charges/Coding Visit Charges Inpatient E&M: 80704 Init Hosp L3 Procedures Hospitalists Procedures: 87250 Advncd Care Plan 30 Min
--- NOTE | 2022-10-14 17:14 | NURSING ---
MED SURG WEI ECOLI BACTEREMIA, FEVER, LEUKOCYTOSIS
[2022-10-14 17:29] VITALS: BP 142/73; PULSE 75; RESP 16; TEMP 36.8; O2SAT 98
[2022-10-14] MEDS: Ceftriaxone 1 GM/50 ML BAG IV (17:55)
--- NOTE | 2022-10-14 18:40 | US_ITS ---
STUDY: RENAL ULTRASOUND - COMPLETE REASON FOR EXAM: Male, 57 years old. UTI and bacteremia . Although not indicated on this requisition, this patient is apparently known to have a probable neoplastic mass of the left kidney based on review of CT scan 10/01/2022. Since this is not reported on the current history, please ensure close correlation history and previous studies. TECHNIQUE: Ultrasound evaluation of the kidneys was performed with real-time and static acevedo-scale imaging. COMPARISON: CT scan 10/01/2022. FINDINGS: RIGHT KIDNEY: Normal location of the right kidney, which is normal in size. The right kidney measures 13.9 x 5.5 x 6.2 cm. There is a normal cortex of the right kidney. The renal cortex measures 2.5 cm. There is a 2.1 cm upper pole cyst. There are no right renal calculi. There is no right hydronephrosis. DISTAL RIGHT URETER: There is non-visualization of the distal right ureter. There is no demonstrated right ureterovesical junction calculus. There is no demonstrated right ureteral jet. LEFT KIDNEY: Normal location of the left kidney, which is normal in size. The left kidney measures 13.2 x 5.8 x 5.7 cm. There is a normal cortex of the left kidney. The renal cortex measures 2.3 cm. As seen on the CT scan, and previously reported, there is a 4.9 cm probable malignant mass of the mid left kidney. There is a 2 cm lower pole cyst. There are no left renal calculi. There is no left hydronephrosis. DISTAL LEFT URETER: There is non-visualization of the distal left ureter. There is no demonstrated left ureterovesical junction calculus. There is no demonstrated left ureteral jet. BLADDER: The urinary bladder has a volume of 47 ml. There is a normal wall thickness of the distended urinary bladder. There is no demonstrated mass within the urinary bladder. There are no demonstrated bladder calculi. US/Kidney and Bladder IMPRESSION: No hydronephrosis. There is again seen 4.9 cm solid probably malignant mass of the left kidney. This was already diagnosed on CT scan 10/01/2022. Electronically Signed: Jayjay Vasquez MD at 19:45 EDT ,
[2022-10-14 18:43] VITALS: BP 124/72; PULSE 79; RESP 16; TEMP 36.8; O2SAT 100; BMI 41.1
[2022-10-14 18:48] VITALS: BP 124/72; PULSE 79; RESP 16; TEMP 36.8; O2SAT 100
[2022-10-14] MEDS: 0.9% Normal Saline 1,000 ML 75 ML IV (19:35)
[2022-10-14 19:56] VITALS: O2SAT 96
[2022-10-14 21:51] VITALS: BP 131/64; PULSE 88; RESP 18; TEMP 37.3; O2SAT 97
[2022-10-14 22:00] LABS: Bacteria 0 SEEN /hpf (None Seen); Mucous, Urine 0 SEEN /hpf (<or=2+); Red Blood Cells-Urine 0 SEEN /hpf (0-5); Squamous Epithelial Cells - UA 0 SEEN /hpf (0-5); White Blood Cells 0 SEEN /hpf (0-5)
[2022-10-14 22:06] LABS: Color, Urine Yellow (Yellow); Glucose, Dipstick Normal (Normal); Ketone-Dipstick Negative (Negative); Leukocyte Esterase-Dipstick Negative /ul (Negative); Nitrite-Dipstick Negative (Negative); Occult Blood-Urine Negative /ul (Negative); Protein-Dipstick 15 mg/dl (Negative); Urine Bilirubin Dipstick Negative (Negative); Urine Clarity Clear (Clear); Urine Urobilinogen Normal (Normal)
[2022-10-15 04:37] VITALS: BP 128/60; PULSE 72; RESP 18; TEMP 37.1; O2SAT 96
[2022-10-15 06:34] LABS: Absolute Lymphocyte Count 2.04 X10^3/uL (0.83-4.51); Basophil# 0.06 X10^3/uL; Basophil% 0.5 % (0-1); Eosinophil# 0.13 X10^3/uL; Eosinophils% 1.2 % (0-5); Hematocrit 36.2 % (40-54); Hemoglobin 12.1 g/dL (13.0-16.5); Lymphocyte # 2.04 X10^3/ul (0.83-4.51); Lymphocyte % 18.6 % (19-41); Mean Corp Hgb Conc 33.4 g/dL (32-36); Mean Corpuscular Hgb 28.5 pg (27.0-32.0); Mean Corpuscular Volume 85.4 fL (80-94); Mean Platelet Vol. 8.7 fl (6.2-12.0); Monocyte# 0.62 X10^3/uL; Monocyte% 5.7 % (0-10); NRBC Flagged by Analyzer 0 % (0-5); Neutrophil # 7.98 X10^3/uL (2.7-7.7); Neutrophil % 72.9 % (47-70); Platelet Count 553 K/mm3 (150-450); RBC Distribution Width CV 14.6 % (11.6-14.6); RBC Distribution Width SD 45.8 fl (35.1-43.9); Red Blood Count 4.24 M/mm3 (4.6-6.2)
[2022-10-15 07:00] LABS: Anion Gap 8 (5-15); BUN 14 mg/dL (7-18); BUN/Creat Ratio 14.1 RATIO (10-20); Calcium,Total 9.1 mg/dL (8.5-10.1); Chloride 102 mmol/L (98-107); EST Glomerular Filtration Rate 82 mL/min (>60); Est Glom Filt Rate - Afr Amer 99 mL/min (>60); Glucose 112 mg/dL (74-106); Potassium 4.5 mmol/L (3.5-5.1); Sodium Level 134 mmol/L (136-145)
--- NOTE | 2022-10-15 07:42 | PCM.PN.HOSP ---
Reason for Visit Reason for Visit: Diagnoses Unspecified Escherichia coli [E. coli] as the cause of diseases classified elsewhere (10/14/22) Bacteremia (10/14/22) Subjective Subjective Feels fine at this time. Objective Data Objective Data Vital Signs: Vital Signs Temp Pulse Resp BP Pulse Ox O2 Del Method 37.1 C 72 18 128/60 H 96 Room Air 10/15/22 04:37 10/15/22 04:37 10/15/22 04:37 10/15/22 04:37 10/15/22 04:37 10/15/22 04:37 Oxygen Delivery Method Room Air Weight: 119.3 kg Body Mass Index (BMI) 41.1 Intake & Output: Intake and Output for Last 24 Hours 10/13/22 10/14/22 10/15/22 23:59 23:59 23:59 Intake Total 1162 / 1162 1000 / 1000 Balance 1162 / 1162 1000 / 1000 Lab / Micro Data Result Diagrams: 10/15/22 06:03 10/15/22 06:03 Labs: Laboratory Results - last 24 hr 10/14/22 16:08: WBC 13.8 H, RBC 4.59 L, Hgb 12.8 L, Hct 40.0, MCV 87.1, MCH 27.9, MCHC 32.0, RDW Std Deviation 47.1 H, RDW Coeff of Deon 14.7 H, Plt Count 577 H, MPV 8.7, Immature Gran % (Auto) 1.000 H, Neut % (Auto) 74.7 H, Lymph % (Auto) 16.7 L, [place] % (Auto) 6.4, Eos % (Auto) 0.8, Baso % (Auto) 0.4, Absolute Neuts (auto) 10.3 H, Absolute Lymphs (auto) 2.31, Nucleated RBC % 0 10/14/22 16:08: Sodium 134 L, Potassium 4.3, Chloride 102, Carbon Dioxide 26.0, Anion Gap 6, BUN 19 H, Creatinine 0.95, Estim Creat Clear Calc 80.21, Est GFR (MDRD) Af Amer 105, Est GFR (MDRD) Non-Af 87, BUN/Creatinine Ratio 19.9, Glucose 108 H, Calcium 9.1 10/14/22 21:50: Urine Color Yellow, Urine Clarity Clear, Urine pH 6.0, Ur Specific [place] 1.020, Urine Protein 15 H, Urine Glucose (UA) Normal, Urine Ketones Negative, Urine Occult Blood Negative, Urine Nitrite Negative, Urine Bilirubin Negative, Urine Urobilinogen Normal, Ur Leukocyte Esterase Negative, Urine RBC 0 SEEN, Urine WBC 0 SEEN, Ur Squamous Epith Cells 0 SEEN, Urine Bacteria 0 SEEN, Urine Mucus 0 SEEN 10/15/22 06:03: WBC 11.0, RBC 4.24 L, Hgb 12.1 L, Hct 36.2 L, MCV 85.4, MCH 28.5, MCHC 33.4, RDW Std Deviation 45.8 H, RDW Coeff of Deon 14.6, Plt Count 553 H, MPV 8.7, Immature Gran % (Auto) 1.100 H, Neut % (Auto) 72.9 H, Lymph % (Auto) 18.6 L, [place] % (Auto) 5.7, Eos % (Auto) 1.2, Baso % (Auto) 0.5, Absolute Neuts (auto) 8.0 H, Absolute Lymphs (auto) 2.04, Nucleated RBC % 0 10/15/22 06:03: Sodium 134 L, Potassium 4.5, Chloride 102, Carbon Dioxide 24.0, Anion Gap 8, BUN 14, Creatinine 1.00, Estim Creat Clear Calc 76.20, Est GFR (MDRD) Af Amer 99, Est GFR (MDRD) Non-Af 82, BUN/Creatinine Ratio 14.1, Glucose 112 H, Calcium 9.1 Radiography Diagnostic Testing: Radiology Impression Renal Ultrasound 10/14/22 18:40 IMPRESSION: No hydronephrosis. There is again seen 4.9 cm solid probably malignant mass of the left kidney. This was already diagnosed on CT scan 10/01/2022. Electronically Signed: Jayjay Vasquez MD at 19:45 EDT , Physical Exam Const alert and no apparent distress HEENT head/scalp atraumatic and moist oral mucous membranes Neuro oriented x3 Sensorium / Orientation: awake and alert Psych affect normal Assessment & Plan Assessment/Plan (1) Bacteremia due to Escherichia coli: PLAN: Persistent E. coli bacteremia after prostatic biopsy/complicated acute prostatitis: ID consult. Patient had recent CT abdomen on 10/01 and MRI of kidneys today in [facility]. Blood cultures x2, UA and urine cultures ordered in ED. Hematuria from prostate biopsy has resolved. Patient stated that he was on cefdinir and developed of vesicular rash over his abdomen. He stated he stopped taking it and then the rash went away and was changed over to some other antibiotic. That other antibiotic he tolerated. Patient did receive ceftriaxone last night and seemed to do okay with that. Patient also states that he has issues in regards to what sounds like severe contact dermatitis when he wears certain gloves and certain boots of a certain fabric. Advised the nurse to discontinue the ceftriaxone and will wait on infectious disease to see him and make recommendations regards to antibiotics. (2) Left kidney mass: PLAN: Concern for malignancy. Noted on CT from 10/01. US still shows 4.9 cm mass. Will need further evaluation. Given ongoing bacteremia, not currently a candidate for Bx. Patient is scheduled to follow-up at [facility] to see a urologist up there. I advised him to follow-up with them. PLAN: Plan Chronic conditions: ? Hypertension- Blood pressure controlled, home medications continued with dose adjustment as needed Class IV obesity with BMI of 42.2 kg/m?? Weight loss advised Recent acute anemia due to prostatic biopsy and hematuria: Hematuria has resolved. Patient hemoglobin 12.8, similar to the previous admission, 12.5 and 12.8 g%. Patient baseline hemoglobin about 15 g%. DVT prophylaxis: Moderate-risk: Lovenox 40 mg subcu daily. Discontinue if platelet count drops less than 50,000 or hemoglobin less than 8 g% Greater than 35 minutes of which greater than for present time was discussed with patient about the bacteremia, reviewing antibiotics with him, also reviewing the kidney mass and plans for his follow-up. Charges/Coding Visit Charges Inpatient E&M: 46435 Subs Hosp L2
[2022-10-15 07:47] VITALS: O2SAT 95
[2022-10-15] MEDS: Ensure Plus High Protein 120 ML LIQUID PO ×2 (08:47→12:21)
[2022-10-15] MEDS: 0.9% Normal Saline 1,000 ML 75 ML IV (08:48)
[2022-10-15] MEDS: Lisinopril 5 MG Tablet PO (08:50)
[2022-10-15] MEDS: Enoxaparin 40 MG/0.4 ML Syringe SC (08:50)
[2022-10-15 09:13] VITALS: BP 150/81; PULSE 69; RESP 16; TEMP 36.8; O2SAT 95
[2022-10-15 11:14] VITALS: BP 169/80; PULSE 67; RESP 16; TEMP 36.6; O2SAT 98
[2022-10-15 15:14] VITALS: BP 126/65; PULSE 78; RESP 16; TEMP 36.6; O2SAT 95
--- NOTE | 2022-10-15 15:20 | PCM.CONS.GEN ---
Assessment & Plan Assessment/Plan (1) Bacteremia due to Escherichia coli: PLAN: Recurrent infection. Bcx here pending. Suspect prostate or renal mass as source of ongoing infection. Will write for 4 weeks augmentin. Will follow as needed, thank you, jael Hidalgo (2) Left kidney mass: HPI Consult Data Date of Consult: 10/15/22 HPI Narrative Reason for Consultation: bacteremia HPI Narrative: AYE JONAS, is a 57 M who presented with 2 days fever and chills. Had prostate biopsy, then fever, chills. Admitted here 10/02-10/03 for ecoli bacteremia. Renal mass seen on CT. D/c home on omnicef, developed hives, changed to augmentin. Completed abx 10/10, sx recurred quickly. Now admitted, given ceftriaxone, again feeling better. Full ROS performed and neg except as noted above. [facility] Medical History Hypertension Left kidney mass Obesity Home Medications lisinopril 5 mg tablet 5 mg PO DAILY BP 10/01/22 [History Last Taken 10/12/22] multivitamin 1 tab PO DAILY SUPPLEMENT 10/14/22 [History Last Taken 10/12/22] amoxicillin 875 mg-potassium clavulanate 125 mg tablet 1 tab PO BID 28 days #56 tabs 10/15/22 [Rx Last Taken Unknown] Allergy/AdvReac Type Severity Reaction Status Date / Time cefdinir Allergy Hives Verified 10/14/22 18:51 Family History Father Heart valve replaced Social History Smoking Status: Current every day smoker tobacco type: smokeless tobacco alcohol intake: current alcohol intake frequency: holidays/special occasions only Physical Exam Const alert, oriented x3 and no apparent distress General Appearance: cooperative HEENT normocephalic and head/scalp atraumatic Eyes PERRL and EOMs intact bilaterally Neck supple and No nodes Resp normal air movement and clear to auscultation bilaterally Cardio regular rate and regular rhythm GI soft to palpation, non-tender and non-distended Extremity General Extremity: edema Skin no rashes or lesions noted Neuro CN's II-XII intact bilaterally Lab / Micro Data Attestation: I reviewed the patient's lab results. Result Diagrams: 10/15/22 06:03 10/15/22 06:03 Labs: Laboratory Results - last 24 hr 10/14/22 16:08: WBC 13.8 H, RBC 4.59 L, Hgb 12.8 L, Hct 40.0, MCV 87.1, MCH 27.9, MCHC 32.0, RDW Std Deviation 47.1 H, RDW Coeff of Deon 14.7 H, Plt Count 577 H, MPV 8.7, Immature Gran % (Auto) 1.000 H, Neut % (Auto) 74.7 H, Lymph % (Auto) 16.7 L, [place] % (Auto) 6.4, Eos % (Auto) 0.8, Baso % (Auto) 0.4, Absolute Neuts (auto) 10.3 H, Absolute Lymphs (auto) 2.31, Nucleated RBC % 0 10/14/22 16:08: Sodium 134 L, Potassium 4.3, Chloride 102, Carbon Dioxide 26.0, Anion Gap 6, BUN 19 H, Creatinine 0.95, Estim Creat Clear Calc 80.21, Est GFR (MDRD) Af Amer 105, Est GFR (MDRD) Non-Af 87, BUN/Creatinine Ratio 19.9, Glucose 108 H, Calcium 9.1 10/14/22 21:50: Urine Color Yellow, Urine Clarity Clear, Urine pH 6.0, Ur Specific [place] 1.020, Urine Protein 15 H, Urine Glucose (UA) Normal, Urine Ketones Negative, Urine Occult Blood Negative, Urine Nitrite Negative, Urine Bilirubin Negative, Urine Urobilinogen Normal, Ur Leukocyte Esterase Negative, Urine RBC 0 SEEN, Urine WBC 0 SEEN, Ur Squamous Epith Cells 0 SEEN, Urine Bacteria 0 SEEN, Urine Mucus 0 SEEN 10/15/22 06:03: WBC 11.0, RBC 4.24 L, Hgb 12.1 L, Hct 36.2 L, MCV 85.4, MCH 28.5, MCHC 33.4, RDW Std Deviation 45.8 H, RDW Coeff of Deon 14.6, Plt Count 553 H, MPV 8.7, Immature Gran % (Auto) 1.100 H, Neut % (Auto) 72.9 H, Lymph % (Auto) 18.6 L, [place] % (Auto) 5.7, Eos % (Auto) 1.2, Baso % (Auto) 0.5, Absolute Neuts (auto) 8.0 H, Absolute Lymphs (auto) 2.04, Nucleated RBC % 0 10/15/22 06:03: Sodium 134 L, Potassium 4.5, Chloride 102, Carbon Dioxide 24.0, Anion Gap 8, BUN 14, Creatinine 1.00, Estim Creat Clear Calc 76.20, Est GFR (MDRD) Af Amer 99, Est GFR (MDRD) Non-Af 82, BUN/Creatinine Ratio 14.1, Glucose 112 H, Calcium 9.1 Radiology Impression Renal Ultrasound 10/14/22 18:40 IMPRESSION: No hydronephrosis. There is again seen 4.9 cm solid probably malignant mass of the left kidney. This was already diagnosed on CT scan 10/01/2022. Electronically Signed: Jayjay Vasquez MD at 19:45 EDT ,
--- NOTE | 2022-10-15 15:40 | DCINST_ITS ---
Discharge Instructions Diet Discharge Diet: No restrictions Dressing / Incision Call your doctor if you observe: Fever of 101 or Higher Follow Up Care Test Results: Test results from this visit will be discussed in further detail at your follow- up appointment, if applicable. Discharge Plan Admission Admit Date/Time: 10/14/22 17:06 Primary Reason for Your Visit: bacteremia. prostatitis Attending Provider: Reed Hidalgo Primary Care Provider: Billy Thurston Consulting Providers: Ayad Laura ; Adryan King Discharge Orders/Prescriptions Prescriptions: New amoxicillin-pot clavulanate 875-125 mg tablet 1 tab PO BID 28 Days Qty: 56 0RF Continued lisinopril 5 mg tablet 5 mg PO DAILY Label Comments: take 1 tablet by mouth once daily multivitamin Tablet 1 tab PO DAILY Referrals / Follow Up: Billy Thurston MD [Primary Care Provider] - Disposition Disposition (needs filled in before D/C Order can be placed): Home, Self Care
--- NOTE | 2022-10-15 15:42 | PCM.DC.SUM ---
Providers Date of Admission: 10/14/22 Primary Care Physician: Dr. Billy Thurston MD Consultations 10/14/22 18:40 Consult: Infectious Disease Routine Consulting Provider: Ayad Laura Reason for Consult: Persistant bactermia EMERGENT Consult: No MD Notified: Yes Date Notified: 10/14/22 Time Notified: 22:40 Method of Notification: Answering Service Reason For Visit: E COLI BACTEREMIA Diagnosis Discharge Diagnosis (1) Bacteremia due to Escherichia coli: Status: Acute Code(s): R78.81 - Bacteremia; B96.20 - Unspecified Escherichia coli [E. coli] as the cause of diseases classified elsewhere Plan: Persistent E. coli bacteremia after prostatic biopsy/complicated acute prostatitis: ID consult. Patient had recent CT abdomen on 10/01 and MRI of kidneys today in [facility]. Blood cultures x2, UA and urine cultures ordered in ED. Hematuria from prostate biopsy has resolved. Patient stated that he was on cefdinir and developed of vesicular rash over his abdomen. He stated he stopped taking it and then the rash went away and was changed over to some other antibiotic. That other antibiotic he tolerated. Patient did receive ceftriaxone last night and seemed to do okay with that. Patient also states that he has issues in regards to what sounds like severe contact dermatitis when he wears certain gloves and certain boots of a certain fabric. Advised the nurse to discontinue the ceftriaxone and will wait on infectious disease to see him and make recommendations regards to antibiotics. (2) Left kidney mass: Status: Acute Code(s): N28.89 - Other specified disorders of kidney and ureter Plan: Concern for malignancy. Noted on CT from 10/01. US still shows 4.9 cm mass. Will need further evaluation. Given ongoing bacteremia, not currently a candidate for Bx. Patient is scheduled to follow-up at [facility] to see a urologist up there. I advised him to follow-up with them. Plan Chronic conditions: ? Hypertension- Blood pressure controlled, home medications continued with dose adjustment as needed Class IV obesity with BMI of 42.2 kg/m?? Weight loss advised Recent acute anemia due to prostatic biopsy and hematuria: Hematuria has resolved. Patient hemoglobin 12.8, similar to the previous admission, 12.5 and 12.8 g%. Patient baseline hemoglobin about 15 g%. DVT prophylaxis: Moderate-risk: Lovenox 40 mg subcu daily. Discontinue if platelet count drops less than 50,000 or hemoglobin less than 8 g% Greater than 35 minutes of which greater than for present time was discussed with patient about the bacteremia, reviewing antibiotics with him, also reviewing the kidney mass and plans for his follow-up. Medications at Discharge Home Medications lisinopril 5 mg tablet 5 mg PO DAILY BP 10/01/22 multivitamin 1 tab PO DAILY SUPPLEMENT 10/14/22 amoxicillin 875 mg-potassium clavulanate 125 mg tablet 1 tab PO BID 28 days #56 tabs 10/15/22 Hospital Course Operations None Procedures None Summary of Care Provided Minutes Spent on Discharge: 32 Hospital Course: Smith with a recurrent E. coli bacteremia. Patient was seen in the emergency room on the and still had positive blood cultures. This all began after a prostate biopsy that he had had and was treated earlier in the month for bacteremia. It was pansensitive E. coli. With this we had infectious disease see him and is recommending 4 weeks of Augmentin. Patient will be discharged today. Patient does also have a kidney mass that has been present. It is concerning for being malignancy. Patient has a follow-up appointment with urology at [facility]. Weight / BMI Weight Weight: 119.3 kg Body Mass Index (BMI) 41.1 ABG / Lab / Microbiology Data Result Diagrams: 10/15/22 06:03 10/15/22 06:03 Laboratory: Laboratory Results - last 24 hr 10/14/22 16:08: WBC 13.8 H, RBC 4.59 L, Hgb 12.8 L, Hct 40.0, MCV 87.1, MCH 27.9, MCHC 32.0, RDW Std Deviation 47.1 H, RDW Coeff of Deon 14.7 H, Plt Count 577 H, MPV 8.7, Immature Gran % (Auto) 1.000 H, Neut % (Auto) 74.7 H, Lymph % (Auto) 16.7 L, [place] % (Auto) 6.4, Eos % (Auto) 0.8, Baso % (Auto) 0.4, Absolute Neuts (auto) 10.3 H, Absolute Lymphs (auto) 2.31, Nucleated RBC % 0 10/14/22 16:08: Sodium 134 L, Potassium 4.3, Chloride 102, Carbon Dioxide 26.0, Anion Gap 6, BUN 19 H, Creatinine 0.95, Estim Creat Clear Calc 80.21, Est GFR (MDRD) Af Amer 105, Est GFR (MDRD) Non-Af 87, BUN/Creatinine Ratio 19.9, Glucose 108 H, Calcium 9.1 10/14/22 21:50: Urine Color Yellow, Urine Clarity Clear, Urine pH 6.0, Ur Specific [place] 1.020, Urine Protein 15 H, Urine Glucose (UA) Normal, Urine Ketones Negative, Urine Occult Blood Negative, Urine Nitrite Negative, Urine Bilirubin Negative, Urine Urobilinogen Normal, Ur Leukocyte Esterase Negative, Urine RBC 0 SEEN, Urine WBC 0 SEEN, Ur Squamous Epith Cells 0 SEEN, Urine Bacteria 0 SEEN, Urine Mucus 0 SEEN 10/15/22 06:03: WBC 11.0, RBC 4.24 L, Hgb 12.1 L, Hct 36.2 L, MCV 85.4, MCH 28.5, MCHC 33.4, RDW Std Deviation 45.8 H, RDW Coeff of Deon 14.6, Plt Count 553 H, MPV 8.7, Immature Gran % (Auto) 1.100 H, Neut % (Auto) 72.9 H, Lymph % (Auto) 18.6 L, [place] % (Auto) 5.7, Eos % (Auto) 1.2, Baso % (Auto) 0.5, Absolute Neuts (auto) 8.0 H, Absolute Lymphs (auto) 2.04, Nucleated RBC % 0 10/15/22 06:03: Sodium 134 L, Potassium 4.5, Chloride 102, Carbon Dioxide 24.0, Anion Gap 8, BUN 14, Creatinine 1.00, Estim Creat Clear Calc 76.20, Est GFR (MDRD) Af Amer 99, Est GFR (MDRD) Non-Af 82, BUN/Creatinine Ratio 14.1, Glucose 112 H, Calcium 9.1 Radiography Diagnostic Testing: Radiology Impression Renal Ultrasound 10/14/22 18:40 IMPRESSION: No hydronephrosis. There is again seen 4.9 cm solid probably malignant mass of the left kidney. This was already diagnosed on CT scan 10/01/2022. Electronically Signed: Jayjay Vasquez MD at 19:45 EDT , D/C Instructions Discharge Diet: No restrictions Call your doctor if you observe: Fever of 101 or Higher Meaningful Use Info Meaningful Use Diagnoses (Choose all that apply): None applicable Discharge Plan Admission Admit Date/Time: 10/14/22 17:06 Primary Reason for Your Visit: bacteremia. prostatitis Attending Provider: Reed Hidalgo Primary Care Provider: Billy Thurston Consulting Providers: Ayad Laura ; Adryan King Instructions Additional Instructions / Restrictions: Please follow-up with [facility] urology for evaluation of the kidney mass. Discharge Orders/Prescriptions Prescriptions: New amoxicillin-pot clavulanate 875-125 mg tablet 1 tab PO BID 28 Days Qty: 56 0RF Continued lisinopril 5 mg tablet 5 mg PO DAILY Label Comments: take 1 tablet by mouth once daily multivitamin Tablet 1 tab PO DAILY Referrals / Follow Up: Billy Thurston MD [Primary Care Provider] - Disposition Disposition (needs filled in before D/C Order can be placed): Home, Self Care Charges/Coding Visit Charges Inpatient E&M: 68120 Disch Hosp >30min
--- NOTE | 2022-10-15 16:20 | CASEMGMT ---
RN?CM?FUR COAT SEWER?CM?to room to meet with patient for initial transition planning/care coordination?assessment.?RN?CM?introduced self and role at [facility].? Pt voices understanding and consents to?assessment?at this time.? Pt sitting up in chair in no distress at this time.? Pt is A/O at this time and answers all questions appropriately.?? Care providers, pharmacy, and demographics verified/updated at this time. PCP: Dr Thurston Specialists: none Preferred Pharmacy: [facility] Retail Insurance: MMO Prescription Benefit:?Yes Living Will/HPOA:?Has both LW and HCPOA, who is his , Chetna LNOK: , Chetna Living Arrangements: Lives w/ and 2 sons (18 and 13) in one-story home w/2 steps to enter. Independent. Transportation:?Pt states drives self and states no transportation concerns at this time.? drives. DME: ? Denies using any DME and denies needs.? HHC/SNF: No hx of either. No needs identified. Pt wishes to return home and states has no concerns with going home at time of discharge.? Pt voices no concerns/needs at this time.? Advised pt to ask for?CM?if any questions/concerns/needs arise.? Voices understanding. PLAN:??Home Carmenza SNIDERN?RN?CM
== END 2022-10-15 16:42 | disposition home or self-care (01) | DRG 872 ==
LOC: ED 17:24 → MS3 17:31
PROVIDERS: Nurse Practitioner; Admitting Provider Internal Medicine; Emergency Provider Emergency Medicine; PCP Family Medicine
DX: R78.81 Bacteremia (principal); Z68.41 Body mass index [BMI] 40.0-44.9, adult; N41.0 Acute prostatitis; B96.20 Unspecified Escherichia coli [E. coli] as the cause of diseases classified elsewhere; E66.01 Morbid (severe) obesity due to excess calories; I10 Essential (primary) hypertension; F17.220 Nicotine dependence, chewing tobacco, uncomplicated; Z66 Do not resuscitate; Z51.5 Encounter for palliative care; N28.1 Cyst of kidney, acquired; N28.89 Other specified disorders of kidney and ureter
CPT/HCPCS: 36415; 76770; 80048; 81001; 85025; 87040; 87086; 94668; 97802; 99252; 99284; 99406; J7030; A4216; G0463; J0295

== ENCOUNTER 2023-02-23 11:01 | Observation (INO) | payer OTHER, SELFPAY ==
--- NOTE | 2023-02-14 09:16 | EKG12_ITS ---
Test Reason : PRE OP Blood Pressure : / mmHG Vent. Rate : 073 BPM Atrial Rate : 073 BPM P-R Int : 136 ms QRS Dur : 084 ms QT Int : 374 ms P-R-T Axes : 047 027 053 degrees QTc Int : 412 ms Normal sinus rhythm Normal ECG Confirmed by ZENON LIMA, YESSY ([id number]), supervising film or videotape editor ISELA ALVAREZ ([id number]) on 02/17/2023 11:35:30 AM Referred By: Veto Bourne Confirmed By:YESSY YARBROUGH MD
[2023-02-23] VITALS (13 sets, daily range): BP systolic 97–127; BP diastolic 55–79; PULSE 60–81; RESP 16–28; TEMP 36.1–36.9; O2SAT 93–100; BMI 40.0
[2023-02-23] MEDS: Ciprofloxacin 400 MG/200 ML BAG 200 MG IV (06:41)
[2023-02-23] MEDS: Lactated Ringers 1,000 ML 15 ML IV (06:41)
--- NOTE | 2023-02-23 07:30 | KID_PTH ---
PATIENT: AYE JONAS LOC: MS3 U#:[id number] AGE/SX: 57/M ROOM: [facility] RE02/23/[address]: Dr. Veto Bourne MD : 1965 BED: 1 DIS: 02/24/2023 SPEC #: [id number] RECD: 02/23/23 12:50 STATUS: LAVERN MARKS #: [id number] ESME: 02/23/23 07:[address]: Veto Bourne DEPT: SURGICAL PATHOLOGY RECD BY: Amalia Cabral ENTERED: 02/23/23 13:22 SP TYPE: KIDNEY OTHR DR: Dr. Shikha Rodriguez MD Tissues: Kidney, NOS Procedures: Surgery Specimen Level V HEADER OPERATION: Laparoscopic robotic partial nephrectomy PRE-OP DIAGNOSIS: Neoplasm of left kidney TISSUE SUBMITTED: Left renal mass MICROSCOPIC DIAGNOSIS Left renal mass, partial nephrectomy: Clear cell renal cell carcinoma. See synoptic report below. AM:pb 02/28/2023 COMMENT KIDNEY CANCER SUMMARY Procedure - partial nephrectomy Specimen laterality - left kidney Tumor size - 4.4 x 4.0 x 3.5 cm Histologic type - clear cell renal cell carcinoma. Sarcomatoid features - not identified Rhabadoid features - focally present Histologic grade - Grade 2 with focal grade 3-4 Tumor necrosis - absent Tumor extension - tumor confined to kidney Margins - uninvolved by invasive carcinoma. Lymphvascular invasion - not identified Regional lymph nodes - no lymph nodes found Non-neoplastic kidney - mild arterionephrosclerosis and focal chronic inflammation. PATHOLOGIC STAGE: pT1b Nx Mx The above summary is in compliance with [employer] [place] Pathology (CAP) Cancer Protocols Checklist and [place] Joint Committee on Cancer (AJCC), Staging Manual, 8th Ed. Case has been reviewed in consultation with Dr. Stone who concurs with the above diagnosis. IDC:SJ MICROSCOPIC DESCRIPTION Slides are reviewed. GROSS DESCRIPTION Received in fixative is one container labeled with the patient's name and designated left renal mass. The specimen consists of a partial nephrectomy specimen weighing 89 gm and consists of portion of kidney with overlying perirenal adipose tissue measuring 8.0 x 6.5 x 4.0 cm. Perirenal adipose tissue is partially disrupted. The specimen is inked as follows: parenchymal resection margin - black, rest of the specimen - blue. Sections reveal a yellowish, focally hemorrhagic circumscribed mass measuring 4.5 x 4.0 x 3.5 cm. This mass appears to be confined within the kidney. No invasion through the renal tissue is noted. The mass is present very close to the parenchymal resection margin. An area of necrosis is not seen. Jewel Stringer sections are submitted in ten cassettes. Cassette 1 also contains the perirenal adipose tissue. Sections will be submitted after additional fixation. / BRIDGER:pb 02/24/2023 TC:0 CPT: 16600
[2023-02-23] MEDS: Bupivacaine Mpf 0.5% 30 ML VIAL (11:04)
--- NOTE | 2023-02-23 11:04 | PCM.HP.STD ---
HPI - General General Date of Service: 02/23/23 Chief Complaint: Left renal mass HPI Narrative AYE JONAS, is a 57 M who presents for a left laparoscopic robotic assisted partial nephrectomy for a solid enhancing left renal mass suspicious for carcinoma PFSH Medical History Alcohol use Arthritis Bacteremia due to Escherichia coli Chewing tobacco nicotine dependence Chronic cough Depression Hx: UTI (urinary tract infection) Hypertension Injury of head and neck Left kidney mass Obesity Wears glasses Home Medications multivitamin 1 tab PO DAILY SUPPLEMENT 10/14/22 [History Last Taken 10/12/22] lisinopril 5 mg tablet 5 mg PO DAILY BP #30 tabs 02/02/23 [Rx Last Taken Unknown] docusate sodium 100 mg capsule (Col-Rite) 100 mg PO BID #20 caps 02/23/23 [Rx Last Taken Unknown] oxycodone 5 mg tablet 5 mg PO Q6H PRN pain 7 days #14 tabs 02/23/23 [Rx Last Taken Unknown] Allergy/AdvReac Type Severity Reaction Status Date / Time cefdinir Allergy Hives Verified 02/09/23 13:58 Family History (Updated 10/21/22 @ 09:[address] Shikha Rodriguez MD) Father Heart valve replaced Cancer liver Grandmother Diabetes Surgical History H/O knee surgery H/O prostate biopsy Social History (Updated 10/21/22 @ 09:[address] Shikha Rodriguez MD) household members: spouse and children current occupational status: employed current occupation: self-employed - sells drilling/pipeline supplies Smoking Status: Current every day smoker tobacco type: smokeless tobacco Tobacco: How many years used: 45 Electronic Cigarette Use: not used quit status: not considering quitting alcohol intake: current alcohol intake frequency: holidays/special occasions only substance use type: former substance user Date of last use: marijuana do you feel safe at home: Yes Vital Signs Vital Signs Vital Signs: 02/23/23 06:36 02/23/23 06:36 Temperature 96.9 F L Temperature Source Temporal Pulse Rate 60 Respiratory Rate 16 Respiratory Pattern Normal Blood Pressure 127/79 H Blood Pressure Mean 95 Blood Pressure Source Monitor Blood Pressure Position Semi-Fowlers Blood Pressure Location Left Arm Pulse Ox 96 Oxygen Delivery Method Room Air Weight Weight: 116 kg Body Mass Index (BMI) 40.0 Results Lab / Micro Data Labs: Laboratory Results - last 24 hr 02/23/23 06:27: Blood Type O POSITIVE, Antibody Screen NEGATIVE
--- NOTE | 2023-02-23 11:04 | PCM.DC ---
Discharge Instructions Diet Discharge Diet: No restrictions and Light diet - advance as tolerated Activity Discharge Activity: May Not Drive and May Shower Return to work on:: 04/06/23 Lifting Restrictions: No heavy lifting for 6 weeks nothing over 15 pounds Dressing / Incision Call your doctor if your incision/area has: Continuous Slow Oozing and Sudden Increased Bleeding Call your doctor if you observe: Fever of 101 or Higher Follow Up Care Please Follow Up With: Veto Bourne MD When: 2 weeks for follow-up Test Results: Test results from this visit will be discussed in further detail at your follow-up appointment, if applicable. Discharge Plan Admission Primary Reason for Your Visit: Left partial nephrectomy Attending Provider: Veto Bourne Primary Care Provider: Shikha Rodriguez Discharge Orders/Prescriptions Prescriptions: New docusate sodium [Col-Rite] 100 mg capsule 100 mg PO BID Qty: 20 0RF oxycodone 5 mg tablet 5 mg PO Q6H PRN (Reason: pain) 7 Days Qty: 14 0RF No Action multivitamin Tablet 1 tab PO DAILY lisinopril 5 mg tablet 5 mg PO DAILY Qty: 30 0RF Other Ambulatory Orders: 12 Lead EKG (Routine) Timeframe: [id number] Facility: [facility] - Location: Cardiovascular Services Ordered By: Dr. Thomas Lechuga Referrals / Follow Up: Shikha Rodriguez MD [Primary Care Provider] - Veto Bourne MD [Med Staff - Active Staff] - Disposition Disposition (needs filled in before D/C Order can be placed): Home, Self Care
--- NOTE | 2023-02-23 11:05 | OP.PCM_ITS ---
Report of Operation Date of Procedure: 02/23/23 Pre-Operative Diagnosis: Left renal mass Post-Operative Diagnosis: The same Surgery/Procedure Performed:: Laparoscopic robotic assisted left partial nephrectomy Description of Surgical Findings:: Patient was taken back to the operating room after smooth induction of general anesthesia he was placed in supine position Zhou catheter was placed he was intubated and then we used placed him and full flank lateral position for approach to the left kidney through an anterior abdominal approach. The abdomen was shaved prepped and draped in usual sterile fashion I marked out my incisions camera port left arm port and 2 right arm ports for the robot and then an offset assistant press operator port for the offset assistant press operator at the bedside. The camera port incision was opened up with a knife we advanced a Veress needle into the peritoneal cavity filled the peritoneal cavity with CO2 gas placed all our ports as described and then the robot was docked we first started by reflecting the colon off the kidney incising the white line of Toldt incising and reflecting the spleen off the lateral sidewall and reflecting the colon all the way off the lateral sidewall from superior to inferior once the colon was completely resected then ident got underneath the Gerota's fascia underneath the gonadal vein and ureter put my fourth arm there to elevate the kidney up and then we a dissected up along the gonadal vein to reach the renal vein the renal vein was then dissected we dissected inferior to the renal vein trying to find the artery but was not able to find the artery so I went superior to the renal vein and sure enough the artery was superior to the renal vein a very large artery was found. Once the artery was identified and dissected to place a clamp on then the kidney was mobilized we mobilized entire kidney towards this reflected off the sidewall this tumor was upper pole posterior about 3 cm in size once the kidney was mobilized we opened up the fat over the kidney and over the tumor we then used ultrasound to identify the tumor identified all the edges of the tumor and then used electrocautery to identify her incision site all the way around to the kidney around the tumor we used ultrasound identify the location of the kidney and how deep the kidney and tumor went. Once the ultrasound was done then tube bulldogs were placed on the artery and we proceeded with the resection of the tumor first started by cutting and incising the line that was marked the way around the tumor once this was done done then we very carefully dissected deep underneath the tumor and then dissected laterally left and right we got down to the hilum we did I did enter the collecting system and at this point I knew that I was deep enough so then I turned up towards the tumor there was no violation of the tumor as we resected off the kidney and then eventually get the entire tumor off the kidney with a clean resection margin which is normal parenchyma at the margin. Then the tumor was immediately placed in an Endo Catch bag. We then closed the entries into the collecting system using a V-Loc stitch running 2 sutures were used then after this then we used a running 0 Vicryl suture ranted to reapproximate the edges of the resection site and we use a sliding clip technique to pull the edges together nice and tight and good compression after this was done and we pulled both the edges together completely through close up the defect then the artery was unclamped both the bulldogs were removed there was no bleeding from the resection site at all we then ran a second suture line along the resection site at the close up the defect and then at this point then all the sutures were removed from the abdomen. We then undocked the robot then extracted the tumor through the lower port site we closed the port site directly with interrupted sutures in the fascia we then looked back in and checked the kidney again there was no bleeding again and then we closed the 101[address] Jose M Rouse air seal port site and then all the ports were removed abdomen was desufflated and we closed all of this up the incision sites with subcuticular stitches and bandages and dressings were placed. Blood loss was minimal less than 50 cc fluids please see anesthesia chart. Patient is currently being reversed of anesthesia and is stable. Surgeon: Veto Bourne Type of Anesthesia: General Drains: zhou Estimated Blood Loss (mL): 50 Admit VTE Documentation VTE Present on Admission: No VTE Mechan Device Prophylaxis: SCD's VTE Pharm Prophylaxis ordered?: No
[2023-02-23] MEDS: Lactated Ringers 1,000 ML 125 ML IV (13:51)
[2023-02-23] MEDS: Ketorolac 15 MG/ML Vial IV ×3 (13:51→23:58)
[2023-02-23] MEDS: Lactated Ringers 250 ML 999 ML IV (19:27)
[2023-02-23] MEDS: Docusate Sodium 100 MG Capsule 200 MG PO (21:16)
[2023-02-24 00:03] VITALS: BP 104/63; PULSE 78; RESP 18; TEMP 36.8; O2SAT 92
[2023-02-24] MEDS: Lactated Ringers 1,000 ML 125 ML IV ×2 (02:59→05:37)
[2023-02-24 05:25] VITALS: BP 102/53; PULSE 70; RESP 16; TEMP 36.6; O2SAT 92
[2023-02-24] MEDS: Ketorolac 15 MG/ML Vial IV (05:37)
--- NOTE | 2023-02-24 07:11 | PCM.PN.GU ---
Subjective Subjective 57-year-old male status post left partial nephrectomy doing well urine output is good pain is under control. Plan to discharge home later this afternoon advanced diet as tolerated Objective Data Objective Data Vital Signs: Vital Signs Temp Pulse Resp BP Pulse Ox O2 Del Method O2 Flow Rate 98 F 70 16 102/53 L 92 Room Air 2 02/24/23 05:25 02/24/23 05:25 02/24/23 05:25 02/24/23 05:25 02/24/23 05:25 02/24/23 05:25 02/23/23 15:40 Oxygen Flow Rate (L/min) 2 Oxygen Delivery Method Room Air Weight: 116 kg Body Mass Index (BMI) 40.0 Intake & Output: Intake and Output for Last 24 Hours 02/22/23 02/23/23 02/24/23 23:59 23:59 23:59 Intake Total 3275 / 3275 1229.17 / 1229.17 Output Total 200 / 200 800 / 800 Balance 3075 / 3075 429.17 / 429.17 Lab / Micro Data Labs: Laboratory Results - last 24 hr 02/23/23 06:27: Blood Type O POSITIVE, Antibody Screen NEGATIVE
[2023-02-24] MEDS: Multivitamins,Therapeutic Tablet 1 TABLET PO (09:25)
[2023-02-24] MEDS: Lisinopril 5 MG Tablet PO (09:25)
[2023-02-24 09:30] VITALS: BP 116/61; PULSE 63; RESP 16; TEMP 36.9; O2SAT 98
== END 2023-02-24 10:49 | disposition home or self-care (01) ==
LOC: SDC 12:59 → MS3 12:59
PROVIDERS: Admitting Provider Urology; PCP Internal Medicine; Referring Provider Urology; Visit Provider Urology
PROC: (CPT 50543; principal; 2023-02-23 07:10)
DX: C64.2 Malignant neoplasm of left kidney, except renal pelvis (principal); Z68.41 Body mass index [BMI] 40.0-44.9, adult; I10 Essential (primary) hypertension; E66.9 Obesity, unspecified; R73.03 Prediabetes; Z79.899 Other long term (current) drug therapy; F17.220 Nicotine dependence, chewing tobacco, uncomplicated
CPT/HCPCS: 50543; S2900; 00862; 86850; 86900; 86901; 88307; 93005; 94668; 94762; 96361; 96374; 96376; 99221; 99252; 99406; J7120; G0378; G0463; J0744; J2405

== ENCOUNTER → 2023-03-08 | Outpatient (CLI) | payer OTHER, SELFPAY ==
[2023-03-08 12:43] LABS: Vitamin B12 547 pg/mL (211-911)
[2023-03-08 13:03] LABS: Thyroid Stim Hormone (TSH) 1.57 uIU/mL (0.358-3.74)
[2023-03-08 13:40] LABS: Hemoglobin A1c 5.3 % (3.8-5.6)
== END | disposition home or self-care (01) ==
LOC: BIMLAB 09:05
PROVIDERS: PCP Internal Medicine; Referring Provider Internal Medicine; Visit Provider Internal Medicine
DX: G31.84 Mild cognitive impairment of uncertain or unknown etiology (principal); R73.03 Prediabetes
CPT/HCPCS: 36415; 82607; 83036; 84443

== ENCOUNTER → 2023-04-06 | Outpatient (CLI) | payer OTHER, SELFPAY ==
--- NOTE | 2023-04-06 07:18 | MRI_ITS ---
STUDY: MRI BRAIN WITH AND WITHOUT CONTRAST REASON FOR EXAM: Male, 57 years old. STAGING RENAL CA/MEMORY CHANGES TECHNIQUE: Standardized multiplanar fat and water weighted pulse sequences were obtained. IV 24ML Clariscan was administered for the contrast portion of the examination. COMPARISON: None. FINDINGS: Normal size of the ventricles and extra-axial spaces for the patient''s age. There are a limited number of small white matter hyperintensities, distributed throughout the deep white matter tracts of the cerebral hemispheres, consistent with mild chronic white matter ischemic changes. There is no evidence for recent intracranial ischemia or other cause of cytotoxic edema on diffusion weighted imaging (DWI). Normal T2* images of the brain without demonstrated susceptibility artifact. There is no demonstrated hemosiderin stain. There are no visualized ring-enhancing lesions of the brain parenchyma. No abnormal thickening or enhancement of meninges or dura is seen. Normal bilateral basal ganglia. Normal thalami. There is no extra-axial fluid accumulation. Normal flow voids within the major intracranial circulation suggesting patency by spin echo criteria. Normal venous enhancement. There is no enhancing intra-axial or extra-axial abnormality. Normal sella turcica, pituitary gland, infundibular stalk, optic chiasm and hypothalamus. Normal tectal plate and pineal gland. Normal midbrain, helga and medulla. Normal cerebellum. Normal basal cisterns. Normal bilateral temporal bones. Normal bilateral internal auditory canals. No demonstrated orbital abnormality, within the constraints of a routine brain study. Normal visualized paranasal sinuses. Normal calvarium and skull base. Normal visualized soft tissue structures. Normal visualized upper cervical spine. Small 2.04 cm smooth nodule of the scalp subcutaneous tissue overlies the superior aspect of the right frontoparietal junction. This is most likely a benign granuloma or dermal cysts are similar entity. Clinical evaluation and history taken from the patient may provide additional information in terms of the longevity of this lesion. If there is clinical concern referred or dermatology for assessment. MRI/Brain W/WO Contrast IMPRESSION: 1. Chronic ischemic changes of the brain, as described above. Electronically Signed: Teodoro Walsh MD at 15:33 EST ,
[2023-04-06 07:54] LABS: CREATININE FINGERSTICK 1.3 mg/dL (0.70-1.30); EGFR FINGERSTICK > 60.0000 mL/min (>60)
== END | disposition home or self-care (01) ==
LOC: MRI 07:16
PROVIDERS: PCP Internal Medicine; Referring Provider Internal Medicine Medical Oncology; Visit Provider Internal Medicine Medical Oncology
DX: C64.2 Malignant neoplasm of left kidney, except renal pelvis (principal); R41.3 Other amnesia
CPT/HCPCS: 70553; A9575

== ENCOUNTER → 2023-04-11 | Outpatient (CLI) | payer OTHER, SELFPAY ==
--- NOTE | 2023-04-11 07:57 | CT_ITS ---
STUDY: CT CHEST, ABDOMEN T PELVIS WITH CONTRAST REASON FOR EXAM: Male, 57 years old. STAGING RENAL CA. History of left partial nephrectomy. RADIATION DOSAGE (If Supplied By Facility): CTDIvol = ( 25.85 ) mGy, DLP = ( 2194.5 ) mGycm TECHNIQUE: Transaxial imaging was performed following intravenous administration of IV 100mL Isovue-300. Individualized dose optimization techniques were used for this CT. COMPARISON: Comparison is made with prior study dated October 01, 2022. FINDINGS: CHEST A left-sided junito catheter seen with the tip in the superior vena cava. Mildly enlarged left axillary lymph nodes although a fatty hilum is seen. The lungs are normal. There is no demonstrated pleural abnormality. Normal heart and pericardium. There are small lymph nodes within the mediastinum, which are normal in size and morphology most compatible with reactive lymph hyperplasia. Normal hilar regions. Normal unenhanced pulmonary arteries. Normal aorta arch and descending thoracic aorta. There are degenerative changes of the thoracic spine. Multiple intrahepatic cysts. Fatty infiltration of the liver. ABDOMEN Multiple hepatic cysts. Fatty infiltration of the liver. Normal gallbladder and extrahepatic biliary system. Normal spleen. Normal pancreas. Normal bilateral adrenal glands. 1.4 cm x 1.9 sinus cyst in the upper outer aspect of the right kidney. Postoperative changes are seen along the posterior lateral aspect of the mid and lower pole of the left kidney. Stable 1.8 cm cyst in the lower pole of the left kidney. Normal visualized stomach. Normal small intestine. Normal colon. The appendix is visualized and appears normal. Normal abdominal aorta. Normal inferior vena cava. Normal retroperitoneum. Stable presacral soft tissue thickening. Normal abdominal wall. There are diffuse degenerative changes of the visualized lumbar spine. PELVIS Normal urinary bladder. Marked enlargement of the prostate with indentation at the bladder base. The prostate measures 4.5 cm x 5.1 cm. It is of heterogeneous density. Normal visualized small intestine. Normal visualized colon. There is no pelvic fluid. There is no pelvic lymphadenopathy or mass lesion. Normal visualized pelvic arteries. CT/CT Chest, Abd, Pel w/Contrast IMPRESSION: Status post partial resection of the inferior midportion of the left kidney. The remainder of the examination is unchanged. Electronically Signed: Mata Souza MD at 15:21 EST ,
[2023-04-11 08:08] LABS: Absolute Lymphocyte Count 1.99 X10^3/uL (0.83-4.51); Absolute Neutrophil Count 2.5 X10^3/uL (2.0-7.7); Basophil# 0.04 X10^3/uL; Basophil% 0.8 % (0-1); Eosinophil# 0.11 X10^3/uL; Eosinophils% 2.1 % (0-5); Hematocrit 40.3 % (40-54); Hemoglobin 12.9 g/dL (13.0-16.5); Lymphocyte # 1.99 X10^3/ul (0.83-4.51); Lymphocyte % 38.6 % (19-41); Mean Corpuscular Hgb 27.9 pg (27.0-32.0); Mean Platelet Vol. 9.3 fl (6.2-12.0); Monocyte# 0.44 X10^3/uL; Monocyte% 8.5 % (0-10); NRBC Flagged by Analyzer 0 % (0-5); Neutrophil # 2.54 X10^3/uL (2.7-7.7); Neutrophil % 49.4 % (47-70); Platelet Count 276 K/mm3 (150-450); RBC Distribution Width CV 14.5 % (11.6-14.6); RBC Distribution Width SD 45.8 fl (35.1-43.9); Red Blood Count 4.63 M/mm3 (4.6-6.2); White Blood Count 5.2 K/mm3 (4.4-11.0)
[2023-04-11 08:36] LABS: AST(SGOT) 21 U/L (15-37); Alanine Aminotransfer ALT/SGPT 29 U/L (16-61); Albumin, Serum 3.9 g/dL (3.2-5.0); Alkaline Phosphatase 85 U/L (45-117); Anion Gap 5 (5-15); BUN 22 mg/dL (7-18); BUN/Creat Ratio 14.8 RATIO (10-20); Calcium,Total 9.6 mg/dL (8.5-10.1); Chloride 104 mmol/L (98-107); Creatinine, Serum 1.49 mg/dL (0.70-1.30); EST Glomerular Filtration Rate 52 mL/min (>60); Est Glom Filt Rate - Afr Amer 62 mL/min (>60); Globulin 4.1 g/dL (2.2-4.2); Glucose 107 mg/dL (74-106); LDH 150 U/L (87-241); Potassium 3.9 mmol/L (3.5-5.1); Sodium Level 140 mmol/L (136-145)
== END | disposition home or self-care (01) ==
LOC: CT 07:47
PROVIDERS: PCP Internal Medicine; Referring Provider Internal Medicine Medical Oncology; Visit Provider Internal Medicine Medical Oncology
DX: C64.2 Malignant neoplasm of left kidney, except renal pelvis (principal)
CPT/HCPCS: 36415; 71260; 74177; 80053; 83615; 85025; Q9967

== ENCOUNTER → 2023-09-21 | Outpatient (CLI) | payer OTHER, SELFPAY ==
[2023-09-21 08:37] LABS: Absolute Lymphocyte Count 1.98 X10^3/uL (0.83-4.51); Absolute Neutrophil Count 2.8 X10^3/uL (2.0-7.7); Basophil# 0.04 X10^3/uL; Basophil% 0.7 % (0-1); Eosinophil# 0.38 X10^3/uL; Eosinophils% 6.6 % (0-5); Hematocrit 41.9 % (40-54); Lymphocyte # 1.98 X10^3/ul (0.83-4.51); Lymphocyte % 34.6 % (19-41); Mean Corp Hgb Conc 33.4 g/dL (32-36); Mean Corpuscular Hgb 28.5 pg (27.0-32.0); Mean Corpuscular Volume 85.2 fL (80-94); Mean Platelet Vol. 9.4 fl (6.2-12.0); Monocyte# 0.48 X10^3/uL; Monocyte% 8.4 % (0-10); NRBC Flagged by Analyzer 0 % (0-5); Neutrophil # 2.84 X10^3/uL (2.7-7.7); Neutrophil % 49.5 % (47-70); Platelet Count 261 K/mm3 (150-450); RBC Distribution Width CV 13.8 % (11.6-14.6); RBC Distribution Width SD 43.3 fl (35.1-43.9); Red Blood Count 4.92 M/mm3 (4.6-6.2); White Blood Count 5.7 K/mm3 (4.4-11.0)
[2023-09-21 09:04] LABS: Cholesterol 160 mg/dL (200); High Density Lipoprotein 33 mg/dL; Triglycerides 141 mg/dL; Very Low Density Lipoprotein 28 mg/dL (5-40)
[2023-09-21 09:07] LABS: ALB/GLOB Ratio 0.8 RATIO (0.9-2.4); AST(SGOT) 26 U/L (15-37); Alanine Aminotransfer ALT/SGPT 43 U/L (16-61); Albumin, Serum 3.6 g/dL (3.2-5.0); Alkaline Phosphatase 75 U/L (45-117); Anion Gap 7 (5-15); BUN 21 mg/dL (7-18); BUN/Creat Ratio 16.2 RATIO (10-20); Calcium,Total 9.2 mg/dL (8.5-10.1); Chloride 104 mmol/L (98-107); EST Glomerular Filtration Rate 60 mL/min (>60); Est Glom Filt Rate - Afr Amer 73 mL/min (>60); Globulin 4.3 g/dL (2.2-4.2); Glucose 111 mg/dL (74-106); LDH 162 U/L (87-241); Potassium 4.3 mmol/L (3.5-5.1); Protein, Total 7.9 g/dL (6.4-8.2); Sodium Level 134 mmol/L (136-145)
== END | disposition home or self-care (01) ==
LOC: LAB 07:56
PROVIDERS: Internal Medicine Medical Oncology; PCP Internal Medicine; Referring Provider Nurse Practitioner; Visit Provider Nurse Practitioner
DX: C64.2 Malignant neoplasm of left kidney, except renal pelvis (principal); Z12.5 Encounter for screening for malignant neoplasm of prostate; E78.2 Mixed hyperlipidemia
CPT/HCPCS: 36415; 80053; 80061; 83615; 84153; 85025; G0103

== ENCOUNTER → 2024-04-10 | Outpatient (CLI) | payer OTHER, SELFPAY ==
--- NOTE | 2024-04-10 08:12 | CT_ITS ---
STUDY: CT ABDOMEN AND PELVIS WITH CONTRAST REASON FOR EXAM: Male, 58 years old. MONITOR KIDNEY CA RADIATION DOSAGE (If Supplied By Facility): CTDIvol = ( 20.51 ) mGy, DLP = ( 2514.88 ) mGycm TECHNIQUE: Transaxial images were obtained from the dome of the diaphragm to the symphysis pubis without oral contrast. IV 100mL Isovue-370 was administered. Sagittal and coronal images were reconstructed. Individualized dose optimization techniques were used for this CT. COMPARISON: Comparison is made with prior examination dated April 11, 2023. FINDINGS: The visualized lung bases are unremarkable. The visualized portions of the heart are within normal limits. Stable appearance of the hepatic cysts. The largest cyst is in the upper aspect of the right lobe of liver measures 5.2 side by 5 cm. There is evidence of fatty infiltration of the liver. Normal gallbladder and extrahepatic biliary system. Normal spleen. Normal pancreas. Normal bilateral adrenal glands. Stable 1.4 cm x 1.9 cm septated cyst in the upper outer aspect of the right kidney. Once again, postoperative changes are seen in the posterior aspect of the mid and lower pole of the left kidney. Normal visualized stomach. Normal small intestine. Normal colon. The appendix is visualized and appears normal. Normal abdominal aorta. Normal inferior vena cava. Normal retroperitoneum. Normal urinary bladder. Stable enlargement of the prostate. It is of heterogeneous density. Normal abdominal wall. Normal osseous structures. CT/Abdomen/Pelvis W IV Cont ONLY IMPRESSION: Stable examination. Electronically Signed: Mata Souza MD at 14:52 EST ,
[2024-04-10 08:38] LABS: CREATININE FINGERSTICK 1.3 mg/dL (0.70-1.30); EGFR FINGERSTICK > 60.0000 mL/min (>60)
== END | disposition home or self-care (01) ==
LOC: CT 08:08
PROVIDERS: PCP Internal Medicine; Referring Provider Internal Medicine Medical Oncology; Visit Provider Internal Medicine Medical Oncology
DX: Z01.812 Encounter for preprocedural laboratory examination (principal); C64.2 Malignant neoplasm of left kidney, except renal pelvis
CPT/HCPCS: 74177; Q9967

== ENCOUNTER → 2024-06-19 | Outpatient (CLI) | payer OTHER, SELFPAY ==
[2024-06-20 13:08] LABS: PSA, Free 1.75 ng/mL
== END | disposition home or self-care (01) ==
LOC: LAB 09:56
PROVIDERS: PCP Internal Medicine; Referring Provider Urology; Visit Provider Urology
DX: R97.20 Elevated prostate specific antigen [PSA] (principal)
CPT/HCPCS: 36415; 84153; 84154

== ENCOUNTER → 2024-10-09 | Outpatient (CLI) | payer OTHER, SELFPAY ==
[2024-10-09 09:24] LABS: Absolute Lymphocyte Count 1.65 X10^3/uL (0.83-4.51); Absolute Neutrophil Count 2.6 X10^3/uL (2.0-7.7); Basophil# 0.04 X10^3/uL; Basophil% 0.8 % (0-1); Eosinophil# 0.14 X10^3/uL; Eosinophils% 2.8 % (0-5); Hematocrit 43.6 % (40-54); Hemoglobin 15.1 g/dL (13.0-16.5); Lymphocyte # 1.65 X10^3/ul (0.83-4.51); Lymphocyte % 33.2 % (19-41); Mean Corp Hgb Conc 34.6 g/dL (32-36); Mean Corpuscular Hgb 29.4 pg (27.0-32.0); Mean Corpuscular Volume 84.8 fL (80-94); Monocyte# 0.51 X10^3/uL; Monocyte% 10.3 % (0-10); NRBC Flagged by Analyzer 0 % (0-5); Neutrophil # 2.61 X10^3/uL (2.7-7.7); Neutrophil % 52.5 % (47-70); Platelet Count 271 K/mm3 (150-450); RBC Distribution Width CV 14.1 % (11.6-14.6); RBC Distribution Width SD 43.3 fl (35.1-43.9); Red Blood Count 5.14 M/mm3 (4.6-6.2)
[2024-10-09 10:00] LABS: Cholesterol 173 mg/dL (<=200); High Density Lipoprotein 32 mg/dL; Low Density Lipoprotein Calc. 96 mg/dL; Triglycerides 227 mg/dL; Very Low Density Lipoprotein 45 mg/dL (5-40); cholesterol:hdl ratio screen 5.46
[2024-10-09 10:08] LABS: ALB/GLOB Ratio 1.2 RATIO (0.9-2.4); AST(SGOT) 30 U/L (<=37); Alanine Aminotransfer ALT/SGPT 43 U/L (<=46); Albumin, Serum 4.3 g/dL (3.5-5.0); Alkaline Phosphatase 87 U/L (40-129); Anion Gap 11 (5-15); BUN 22 mg/dL (4-19); BUN/Creat Ratio 18.1 RATIO (10-20); Calcium,Total 9.7 mg/dL (7.6-11.0); Carbon Dioxide 23.1 mmol/L (21.0-32.0); Chloride 101 mmol/L (98-108); EST Glomerular Filtration Rate 70 (>60); Globulin 3.5 g/dL (2.2-4.2); Glucose 99 mg/dL (70-99); Potassium 4.4 mmol/L (3.3-5.1); Protein, Total 7.8 g/dL (5.9-8.4); Sodium Level 135 mmol/L (133-145); Total Bilirubin 0.29 mg/dL (0.00-1.30)
[2024-10-09 10:10] LABS: LDH 161 U/L (87-241)
[2024-10-11 15:08] LABS: Albumin 3.7 g/dL (2.9-4.4); Alpha-1-Globulins 0.2 g/dL (0.0-0.4); Alpha-2-Globulins 0.8 g/dL (0.4-1.0); Free Kappa Light Chains 30.2 mg/L (3.3-19.4); Free Lambda Light Chains 28.2 mg/L (5.7-26.3); Gamma Globulin 1.5 g/dL (0.4-1.8); Immunoglobulin A 272 mg/dL (90-386); Immunoglobulin G 1516 mg/dL (603-1613); Immunoglobulin M 83 mg/dL (20-172); PROEL- TOTAL PROTEIN 7.3 g/dL (6.0-8.5)
== END | disposition home or self-care (01) ==
LOC: LAB 07:34
PROVIDERS: PCP Internal Medicine; Referring Provider Internal Medicine Medical Oncology; Visit Provider Internal Medicine Medical Oncology
DX: C64.2 Malignant neoplasm of left kidney, except renal pelvis (principal); R77.1 Abnormality of globulin; I10 Essential (primary) hypertension
CPT/HCPCS: 36415; 80053; 80061; 82784; 83615; 83883; 84165; 85025; 86334